=== PATIENT | male | born 1945 | race Hispanic/Latino ===

== ENCOUNTER 2019-01-13 10:53 | Outpatient (CLI) | payer BC ==
--- NOTE | 2019-01-13 13:51 | MRI ---
MRI LUMBAR SPINE NONCONTRAST: DATE: 01/13/19 HISTORY: 73-year-old male with M48.062 spinal stenosis of lumbar region with neurogenic claudication. COMPARISON: None. FINDINGS: There are five lumbar-type vertebrae. Vertebral body heights are maintained. No major bone marrow sig nal abnormality, other than Modic Type I end plate marrow changes at L5-S1, mostly on the right side. T12-L1: Tiny central disc herniation with mild minimal inferior migration. However, the disc space i s maintained, with normal signal. No central or neural foraminal stenosis. L1-2: Conus medullaris terminates at this level. Mild disc space narrowing. Disc desiccation. Slight degenerative retrolisthesis of L1 on L2. Mild diffuse disc bulge. Mild to moderate bilateral neural foraminal stenosis. No central stenosis. L2-3: Disc space maintained. Disc desiccation. Diffuse disc bulge. Mild right neural foraminal steno sis. Mild to moderate left neural foraminal stenosis. No central stenosis. L3-4: Normal disc height and disc signal. No central stenosis. Mild to moderate bilateral neural for aminal stenosis, left greater than right. No central stenosis. L4-5: Disc desiccation and mild disc bulge without loss of disc height. Bilateral moderate to severe facet DJD causes a slight Grade I anterolisthesis of L4 on L5. Moderately thickened ligamentum flavu m encroaches upon posterior aspect of the spinal canal. All of these factors together result in moder ate central spinal canal stenosis. Superimposed mildly prominent epidural fat pad, especially posteri ren, results in moderate to severe thecal sac stenosis. Mild to moderate bilateral neural foraminal stenosis. L5-S1: Moderate disc space narrowing. Right-sided Modic Type I end plate marrow edema as described a jessica. Bilateral moderate degenerative facet changes. Moderate to severe bilateral neural foraminal st enosis, right worse than left. In addition to a moderate size diffuse disc bulge, there is a superimp osed central and bilateral paracentral focal disc herniation with annular fissure which protrudes int o the anterior aspect of the spinal canal and abuts the bilateral S1 nerve roots. Overall mild centra l spinal canal stenosis. Lateral recess stenosis bilaterally. IMPRESSION: 1. Lumbar spondylosis with degenerative disc disease (mostly mild, but moderate at L5-S1); and facet osteoarthrosis (high grade at L4-5 and L5-S1). 2. Prominent central and bilateral paracentral disc herniation at L5-S1 abutting the bilateral S1 ne rve roots. 3. Moderate to severe bilateral neural foraminal stenosis at L5-S1. JN Zaida POS: TPC
== END 2019-01-13 10:54 | disposition home or self-care (01) ==
LOC: BICMRI 10:53
PROVIDERS: ATTEND Orthopaedic Surgery
DX: M48.062 Spinal stenosis, lumbar region with neurogenic claudication (principal); M47.816 Spondylosis without myelopathy or radiculopathy, lumbar region; M47.817 Spondylosis without myelopathy or radiculopathy, lumbosacral region; M51.37 Other intervertebral disc degeneration, lumbosacral region; M51.27 Other intervertebral disc displacement, lumbosacral region; M48.07 Spinal stenosis, lumbosacral region
CPT/HCPCS: 72148

== ENCOUNTER 2020-04-10 12:26 | Emergency (ER) | payer BC, MEDICARE, OTHER ==
[2020-04-11 11:03] LABS: SARS-CoV-2 MS2 Positive; SARS-CoV-2 N Gene Negative; SARS-CoV-2 S Gene Negative; SARS-CoV-2 orf1ab Negative
== END 2020-04-10 13:20 | disposition home or self-care (01) ==
LOC: ERS 12:26
DX: R05 Cough (principal); Z20.828 Contact with and (suspected) exposure to other viral communicable diseases; E11.9 Type 2 diabetes mellitus without complications; I10 Essential (primary) hypertension; Z79.4 Long term (current) use of insulin; Z79.899 Other long term (current) drug therapy; Z79.1 Long term (current) use of non-steroidal anti-inflammatories (NSAID)
CPT/HCPCS: 87635; 99283; U0003

== ENCOUNTER 2020-04-22 12:46 | Observation (INO) | payer MEDICARE, OTHER ==
[2020-04-22] MEDS ORDERED: Iopamidol-370 76% 500 ML 1 ML ONE (12:55)
--- NOTE | 2020-04-22 14:34 | RAD ---
EXAM: Chest PA and lateral: HISTORY: Positive COVID dictation, testing positive one week ago. Chest congestion. COMPARISON: 09/23/2008 FINDINGS: Heart: Normal cardiac silhouette Aorta: Atherosclerosis Pulmonary vessels: Normal Costophrenic angles: Costophrenic angles are clear. Lungs: Partial obscuration the right hemidiaphragm. Right lower lobe infiltrate cannot be excluded. Pneumothorax: No pneumothorax Osseous structures: No osseous abnormalities IMPRESSION: Right lower lobe infiltrate.
[2020-04-22 15:19] LABS: #Basophils 0.1 thou/uL (0.0-0.2); #Lymphocytes 1.9 thou/uL (1.20-3.40); #Monocytes 0.7 thou/uL (0.11-0.59); #Neutrophils 4.8 thou/uL (1.40-6.50); %Basophils 1.8 % (0.0-1.0); %Eosinophils 0.1 % (0.0-10.0); %Lymphocytes 24.8 % (21.0-51.0); %Monocytes 8.8 % (0.0-10.0); %Neutrophils 64.5 % (42.0-75.0); Mean Corpuscular HGB CONC 33.2 g/dL (32.0-36.0); Mean Corpuscular Hemoglobin 29.5 pg (27.0-31.0); Mean Corpuscular Volume 88.9 fL (78.0-98.0); Mean Platelet Volume 8.6 fL (7.4-10.4); Platelet Count 165 thou/uL (130-400); RBC Distribution Width 13.7 % (11.5-14.5); Red Blood Cell (RBC) Count 4.74 mill/uL (4.70-6.10); White Blood Cell (WBC) Count 7.5 thou/uL (4.8-10.8)
[2020-04-22 15:42] LABS: ALT (SGPT) 17 U/L (8-55); AST (SGOT) 28 U/L (5-34); Albumin 3.7 g/dL (3.4-4.8); Alkaline Phosphatase 57 U/L (40-110); Anion Gap 12 mmol/L (10-20); BUN (Urea Nitrogen) 23 mg/dL (8.4-25.7); Bilirubin, Total 0.6 mg/dL (0.2-1.2); CK (CPK) 362 U/L (30-200); Calc. Creatinine Clearance 0 mL/min (70-130); Calcium 8.4 mg/dL (7.8-10.44); Carbon Dioxide 27 mmol/L (23-31); Chloride 104 mmol/L (98-107); Estimated GFR-MDRD 53; Globulin 3.3 g/dL (2.4-3.5); Glucose 228 mg/dL (83-110); Lipase 11 U/L (8-78); Potassium 4.9 mmol/L (3.5-5.1); Sodium 138 mmol/L (136-145)
[2020-04-22 16:05] LABS: CKMB 6.3 ng/mL (0-6.6)
[2020-04-22] MEDS ORDERED: Aspirin Chewable 81 MG TAB ONE (16:12)
[2020-04-22] MEDS ORDERED: Enoxaparin Sodium 100 MG/ML SYRINGE ONE (17:15)
[2020-04-22] MEDS ORDERED: Cefepime 2 GM VIAL ONE (17:15)
[2020-04-22] MEDS ORDERED: Enoxaparin Sodium 40 MG/0.4 ML SYRINGE ONE (17:18)
[2020-04-22 18:29] LABS: Troponin I 0.036 ng/mL (< 0.028)
[2020-04-22] MEDS ORDERED: Acetaminophen 650 MG Suppository PR PRN (18:43)
[2020-04-22] MEDS ORDERED: Sodium Chloride 0.9% 1,000 ML IV SCH (18:45)
[2020-04-22] MEDS ORDERED: Dextrose 5% in Water 1,000 ML IV PRN (18:57)
[2020-04-22] MEDS ORDERED: Dextrose 50% Abboject 50 ML SYRINGE SLOW IVP PRN (18:57)
[2020-04-22] MEDS ORDERED: Azithromycin 500 MG VIAL ONE (19:03)
--- NOTE | 2020-04-22 19:03 | CT ---
CTA Angio Chest W WO Con 04/22/2020 4:23 PM Indication: Productive cough with history of positive Covid testing Technique: Multiple CTA images were obtained of the thorax with IV contrast. 3-D rendering: MIP haseeb nstructed images were created and reviewed. Comparison: No relevant prior studies available. Findings: Pulmonary arteries: Respiratory motion artifact slightly limits image detail the segmental pulmonary arterial branching of both lungs. No definite central pulmonary embolus is evident. Heart and Aorta: There is mild cardiomegaly. There are vascular consultation involving the coronary arteries and thoracic aorta. Mediastinum:Normal appearing. No enlarged lymph nodes. Lungs:There are patchy peripheral subpleural groundglass opacity seen within both lungs. No airspace consolidation is evident. Pleural space: Clear. Upper Abdomen: No acute abnormality. Osseous Structures: No acute osseous abnormality. There is scattered degenerative and osteoarthritic change present. Soft tissues:No abnormality. Other findings:None. Impression: 1. No definite central pulmonary embolus is evident within limitation exam. 2. Patchy peripheral subpleural groundglass opacities affecting both lungs consistent with a pattern seen with Covid -related pneumonia.
--- NOTE | 2020-04-22 19:44 | PDOC.HHP ---
Hospitalist HPI - History of Present Illness Cough History of Present Illness: Patient presents due to low oxygen noted at home of 90%. was concerned because she was told it should be higher than that. He and his have both been experiencing coughs and were initially tested for COVID on 04/10, and initially tested negative. Their symptoms persisted prompting them to go to the urgent care center last Wednesday. They were tested again and given results last Wednesday and found to be positive for COVID. Wednesday at which time they were tested for COVID for a second time due to their coughs. Initial test was negative however this past Wednesday they were told they tested positive. Patient has been on doxycycline, albuterol with minimal relief in symptoms. He complains of a persistent dry cough without any associated shortness of breath or chest pain. Denies any hemoptysis. Has not had any fever. Has been functioning as normal at home. Walks independently and denies any dyspnea on exertion. Has not had any lower leg swelling. No headaches or dizziness. Appetite has been normal. Denies any complaints. No history of underlying lung disease such as asthma or COPD. His only complaint at the moment is being hungry. ED Course: A chest xray was done showing a right lower lobe infiltrate. He was started on IV antibiotics for pneumonia. Labs showed a normal FBC. CK 362. BUN 23, Creat 1.32, GFR 53 (altered from baseline). Lactic acid 1.2. Indeterminate troponin of 0.031, therefore serial enzymes were ordered. He remained asymptomatic with regards to chest pain or sob. EKG done showed NSR , HR 71. No ST changes or T wave abnormalities present. D-dimer elevated 1.19 CTA ordered. (His is also awaiting CTA at this moment with plans to d/c home if results come back normal). Patient given Aspirin 324 mg due to indeterminate trop. Also given 1 mg/kg of Lovenox in ED. Started on Azithromycin and Cefepime. Hospitalist ROS - Review of Systems Constitutional: denies: fever, chills, sweats, weakness, malaise, other Eyes: denies: pain, vision change, conjunctivae inflammation, eyelid inflammation, redness, other ENT: denies: ear pain, ear discharge, nose pain, nose discharge, nose congestion , mouth pain, mouth swelling, throat pain, throat swelling, other Respiratory: reports: cough, dry. denies: shortness of breath, hemoptysis, SOB with excertion, pleuritic pain, sputum, wheezing, other Cardiovascular: denies: chest pain, palpitations, orthopnea, paroxysmal noc. dyspnea, edema, light headedness, other Gastrointestinal: denies: nausea, vomiting, abdominal pain, diarrhea, constipation, melena, hematochezia, other Genitourinary: denies: dysuria, frequency, incontinence, hematuria, retention, other Musculoskeletal: denies: neck pain, shoulder pain, arm pain, back pain, hand pain, leg pain, foot pain, other Skin: denies: rash, lesions, sandeep, bruising, other Neurological: denies: weakness, numbness, incoordination, change in speech, confusion, seizures, other Hospitalist History - Past Medical History Cardiac: reports: HTN Endocrine: reports: Diabetes - Past Surgical History Past Surgical History: reports: Cataract Removal, Other (Left ankle surgery) - Family History Family History: reports: no pertinent history - Social History Smoking Status: Never smoker Alcohol: reports: None Drugs: reports: none Living Situation: With Family Activity level: independent ambulation - Exam General Appearance: NAD, awake alert Eye: PERRL, anicteric sclera ENT: normocephalic atraumatic, no oropharyngeal lesions, moist mucosa Neck: supple, symmetric, no JVD, no thyromegaly, no lymphadenopathy Heart: RRR, no murmur, no gallops, no rubs, normal peripheral pulses Respiratory: CTAB, no wheezes, no rales, no ronchi, normal chest expansion, no tachypnea Gastrointestinal: soft, non-tender, non-distended, normal bowel sounds, no palpable masses Extremities: no edema Skin: normal turgor, no lesions, no rashes Neurological: cranial nerve grossly intact, normal sensation to touch, no weakness Musculoskeletal: normal tone, normal strength, no muscle wasting Psychiatric: normal affect, normal behavior, A&O x 3 Hospitalist Results - Labs Result Diagrams: 04/22/20 15:05 04/22/20 15:05 Lab results: WBC 7.5 thou/uL (4.8-10.8) 04/22/20 15:05 Hgb 14.0 g/dL (14.0-18.0) 04/22/20 15:05 Hct 42.1 % (42.0-52.0) 04/22/20 15:05 MCV 88.9 fL (78.0-98.0) 04/22/20 15:05 Plt Count 165 thou/uL (130-400) 04/22/20 15:05 Neutrophils % 64.5 % (42.0-75.0) 04/22/20 15:05 Sodium 138 mmol/L (136-145) 04/22/20 15:05 Potassium 4.9 mmol/L (3.5-5.1) 04/22/20 15:05 Chloride 104 mmol/L (98-107) 04/22/20 15:05 Carbon Dioxide 27 mmol/L (23-31) 04/22/20 15:05 BUN 23 mg/dL (8.4-25.7) 04/22/20 15:05 Creatinine 1.32 mg/dL (0.7-1.3) H 04/22/20 15:05 Glucose 228 mg/dL (83-110) H 04/22/20 15:05 Lactic Acid 1.2 mmol/L (0.5-2.2) 04/22/20 15:05 Calcium 8.4 mg/dL (7.8-10.44) 04/22/20 15:05 Total Bilirubin 0.6 mg/dL (0.2-1.2) 04/22/20 15:05 AST 28 U/L (5-34) 04/22/20 15:05 ALT 17 U/L (8-55) 04/22/20 15:05 Alkaline Phosphatase 57 U/L (40-110) 04/22/20 15:05 Creatine Kinase 362 U/L (30-200) H 04/22/20 15:05 CK-MB (CK-2) 6.3 ng/mL (0-6.6) 04/22/20 15:05 Troponin I 0.036 ng/mL (< 0.028) H 04/22/20 17:33 C-Reactive Protein 3.03 mg/dL (= or < 0.5) H 04/22/20 17:32 Serum Total Protein 7.0 g/dL (5.8-8.1) 04/22/20 15:05 Albumin 3.7 g/dL (3.4-4.8) 04/22/20 15:05 Lipase 11 U/L (8-78) 04/22/20 15:05 - Radiology Interpretation CT scan - chest Status: pending Hospitalist H&P A/P - Problem (1) Persistent dry cough Code(s): R05 - COUGH Status: Acute (2) COVID-19 virus detected Code(s): U07.1 - COVID-19 Status: Acute (3) Acute on chronic renal insufficiency Code(s): N28.9 - DISORDER OF KIDNEY AND URETER, UNSPECIFIED; N18.9 - CHRONIC KIDNEY DISEASE, UNSPECIFIED Status: Chronic (4) Hypertension Code(s): I10 - ESSENTIAL (PRIMARY) HYPERTENSION Status: Chronic (5) Diabetes mellitus Code(s): E11.9 - TYPE 2 DIABETES MELLITUS WITHOUT COMPLICATIONS Status: Chronic - Plan Plan: Continue IV antibiotics. Patient given Lovenox 1 mg/kg SC x 1 in ED. Awaiting CTA, will hold further anticoagulation if negative for PE. Monitor renal function. Gentle hydration given acute on chronic renal injury with contrast given for CTA. Continue to trend troponins. Cardiac monitoring ordered. Monitor BP and glucose. Resume home medications once verified. ISS initiated. CODE STATUS FULL Surrogate decision maker is his Laura Grayson. PCP: Dr. Henry Forde.
[2020-04-22] MEDS: Famotidine 20 MG TAB PO SCH (20:35)
[2020-04-22 21:34] LABS: CKMB 5.3 ng/mL (0-6.6)
[2020-04-22] MEDS ORDERED: ALBUTEROL SULFATE IH PRN (23:27)
[2020-04-22] MEDS ORDERED: Albuterol 200 PUFF (6.7GM INHALER) INH PRN (23:41)
[2020-04-22] MEDS: Benzonatate 100 MG CAP PO PRN (23:47)
[2020-04-23] MEDS: Acetaminophen 325 MG TAB PO PRN ×2 (04:46→20:34)
[2020-04-23 04:47] LABS: #Lymphocytes 2.3 thou/uL (1.20-3.40); #Monocytes 0.7 thou/uL (0.11-0.59); #Neutrophils 3.3 thou/uL (1.40-6.50); %Eosinophils 0.4 % (0.0-10.0); %Lymphocytes 36.3 % (21.0-51.0); %Neutrophils 52.3 % (42.0-75.0); Hemoglobin 12.9 g/dL (14.0-18.0); Mean Corpuscular HGB CONC 32.4 g/dL (32.0-36.0); Mean Corpuscular Hemoglobin 28.5 pg (27.0-31.0); Mean Corpuscular Volume 88.2 fL (78.0-98.0); Mean Platelet Volume 8.4 fL (7.4-10.4); Platelet Count 168 thou/uL (130-400); RBC Distribution Width 13.6 % (11.5-14.5); White Blood Cell (WBC) Count 6.2 thou/uL (4.8-10.8)
[2020-04-23 05:23] LABS: Anion Gap 10 mmol/L (10-20); BUN (Urea Nitrogen) 17 mg/dL (8.4-25.7); Calc. Creatinine Clearance 91 mL/min (70-130); Calcium 7.9 mg/dL (7.8-10.44); Carbon Dioxide 26 mmol/L (23-31); Chloride 106 mmol/L (98-107); Estimated GFR-MDRD 66; Glucose 178 mg/dL (83-110); Potassium 4.3 mmol/L (3.5-5.1); Sodium 138 mmol/L (136-145)
[2020-04-23] MEDS ORDERED: Cefepime 2 GM in Sodium Chloride 0.9% 100 ML IVPB SCH (06:00)
[2020-04-23] MEDS: Famotidine 20 MG TAB PO SCH ×2 (08:35→20:34)
[2020-04-23] MEDS: Lisinopril 2.5 MG TAB PO SCH (08:35)
[2020-04-23] MEDS: Aspirin 81 mg Enteric Coated Tablet PO SCH (08:36)
[2020-04-23] MEDS: HumuLIN 70/30 (300 UNITS/3 ML VIAL) SC SCH ×2 (08:36→18:22)
--- NOTE | 2020-04-23 18:40 | PDOC.HOSPP ---
- Subjective Encounter Date: 04/23/20 Encounter Time: 16:30 Subjective: pt's chart reviewed. called pt on the phone. he does have a significant cough. - Objective Vital Signs & Weight: Vital Signs (12 hours) Temp Pulse Resp BP BP Pulse Ox 04/23/20 13:01 98.3 F 68 20 148/73 H 92 L 04/23/20 08:40 97.2 F L 63 14 125/58 L 93 L Weight Admit Weight 243 lb Weight 243 lb I&O: 04/22/20 04/23/20 04/24/20 06:59 06:59 06:59 Intake Total 890 Output Total 400 100 Balance 490 -100 Result Diagrams: 04/23/20 04:23 04/23/20 04:23 Additional Labs: Accuchecks 04/23/20 04/22/20 17:00 20:16 POC Glucose 175 H 159 H Hospitalist ROS - Review of Systems Respiratory: reports: cough Cardiovascular: denies: chest pain, palpitations, orthopnea, paroxysmal noc. dyspnea, edema, light headedness, other Gastrointestinal: denies: nausea, vomiting, abdominal pain, diarrhea, constipation, melena, hematochezia, other Genitourinary: denies: dysuria, frequency, incontinence, hematuria, retention, other - Medication Medications: Active Medications Generic Name Dose Route Start Last Admin Trade Name Freq PRN Reason Stop Dose Admin Acetaminophen 650 mg 04/22/20 18:43 04/23/20 04:46 Tylenol PO 650 mg Q4H PRN Administration Headache/Fever/Mild Pain (1-3) Aspirin 81 mg 04/23/20 09:00 04/23/20 08:36 Ecotrin PO 81 mg DAILY CHUY Administration Benzonatate 100 mg 04/22/20 23:27 04/22/20 23:47 Tessalon PO 100 mg TID PRN Administration Cough Famotidine 20 mg 04/22/20 21:00 04/23/20 08:35 Pepcid PO 20 mg BID CHUY Administration Insulin Human Isoph/Insulin Regular 60 units 04/23/20 07:30 04/23/20 18:22 Humulin 70/30 SC 60 unit BID-AC CHUY Administration Lisinopril 2.5 mg 04/23/20 09:00 04/23/20 08:35 Zestril PO 2.5 mg DAILY CHUY Administration Hosp A/P (1) COVID-19 virus detected Code(s): U07.1 - COVID-19 Status: Acute (2) Persistent dry cough Code(s): R05 - COUGH Status: Acute (3) Diabetes mellitus Code(s): E11.9 - TYPE 2 DIABETES MELLITUS WITHOUT COMPLICATIONS Status: Chronic (4) Hypertension Code(s): I10 - ESSENTIAL (PRIMARY) HYPERTENSION Status: Chronic - Plan spoke with ID who saw the pt recommended to monitor the pt. will check labs in am. prn meds for cough. troponin improved.
[2020-04-23] MEDS ORDERED: Azithromycin 500 MG in Sodium Chloride 0.9% 250 ML 250 ML IVPB SCH (20:00)
--- NOTE | 2020-04-23 20:30 | CON ---
DATE OF CONSULTATION: 04/23/2020 REASON FOR CONSULTATION: COVID pneumonia. HISTORY OF PRESENT ILLNESS: A 74-year-old who has history of type 2 diabetes, both him and his developed respiratory symptoms for the past 2 weeks. Apparently, he had been tested negative for COVID on April 10 with his and then he tested again a few days and after was positive, so he is here now on treatment. He could not really be interviewed, because he did not stop coughing during the whole time I was there. He has intermittent headaches. No dyspnea. No abdominal pain or diarrhea. No genitourinary symptoms. No skin disorder or joint symptoms. PAST MEDICAL HISTORY: Diabetes, cataract surgery, ankle surgery. ALLERGIES: NONE. SOCIAL HISTORY: Retired. Lives with and son. Son works as a [employer] truck driver. No smoking history. No alcoholic beverage use. CURRENT MEDICATIONS: P.r.n. medications: 1. Aricept. 2. Glucagon. 3. Insulin. PHYSICAL EXAMINATION: VITAL SIGNS: T-max 100.7, BP 140/70, pulse 68, respirations 14-20, O2 saturation 92% to 94%. SKIN: Not remarkable. The patient has a peripheral IV access. He is voiding in the toilet. LYMPH: No lymphadenopathy. HEENT: Ocular movements conjugate. Oral cavity normal. NECK: Supple. LUNGS: With scattered inspiratory crackles, right and left hemithorax. No wheezing. HEART: S1, S2. Regular rate. No S3 or S4. ABDOMEN: Soft, not distended or tender. No ascites. No bladder distention. No joint inflammatory activity. NEUROLOGIC: Examination nonfocal. LABORATORY DATA: White cell count 7.5 and 6.2. Differential with lymphocyte count of 2.3. D-dimer 1.19 and ferritin 498. CRP was 3.03. Creatinine normal. IMAGING: A chest CT was completed and it showed patchy ground-glass opacities typical of COVID, O2 saturations are 92% to 93% on room air. ASSESSMENT: 1. Type 2 diabetes. 2. COVID pneumonia, [id number]. 3. He has been ill now for more than 2 weeks, so he is not a candidate for remdesivir. We will go ahead and start him on Decadron daily dose, supportive therapy. Job ID: [id number]
[2020-04-23] MEDS: Atorvastatin Calcium 20 MG TAB PO SCH (20:35)
[2020-04-23] MEDS: Donepezil HCl 10 MG TAB PO SCH (20:35)
[2020-04-23] MEDS: Benzonatate 100 MG CAP PO PRN (20:35)
[2020-04-24] MEDS: Acetaminophen 325 MG TAB PO PRN (04:12)
[2020-04-24] MEDS: Aspirin 81 mg Enteric Coated Tablet PO SCH (07:55)
[2020-04-24] MEDS: Lisinopril 2.5 MG TAB PO SCH (07:55)
[2020-04-24] MEDS: Dexamethasone 4 MG TAB PO SCH (07:55)
[2020-04-24] MEDS: Famotidine 20 MG TAB PO SCH ×2 (13:26→20:01)
[2020-04-24] MEDS: HumuLIN 70/30 (300 UNITS/3 ML VIAL) SC SCH ×2 (13:26→17:44)
--- NOTE | 2020-04-24 14:00 | PRG ---
DATE OF SERVICE: 04/24/2020 SUBJECTIVE: Mr. Grayson is still coughing fairly frequently. Little bit of dyspnea. No chest pain. No abdominal pain. Little bit of diarrhea. OBJECTIVE: VITAL SIGNS: His temperature curve has improved probably with the Decadron. His BP is 140/69, pulse 72, respirations 16, O2 saturations LUNGS: Again with faint basilar crackles. HEART: S1 and S2, regular rate. No wheezing. ABDOMEN: Soft, not distended. Moves all extremities equally. LABORATORY DATA: White cell count has not been repeated. D-dimer is down to 1.1. The ferritin is up to 441 and the C-reactive protein is up to 3.37. ASSESSMENT AND DISCUSSION: Type 2 diabetes; COVID pneumonia, moderate to severe. The patient is right at the threshold, where those moderate to severe patients may deteriorate and end up requiring higher levels of oxygen supplementation and even intubation. I would advise to keep him in the hospital to avoid readmission and having to be intubated and hopefully in the next few days with Decadron, he will improve further and then allow disposition in a more secure fashion. Job ID: [id number] MTDD
--- NOTE | 2020-04-24 16:30 | PDOC.HOSPP ---
- Subjective Encounter Date: 04/24/20 Encounter Time: 16:30 Subjective: called pt in the room and also saw him later on. when pt called he states that he feels well and no cough. however when i went into the room pt states that he does not feel well. - Objective Vital Signs & Weight: Vital Signs (12 hours) Temp Pulse Resp BP Pulse Ox 04/24/20 12:30 98.6 F 72 16 148/69 H 92 L 04/24/20 07:55 98.8 F 80 19 138/71 94 L Weight Admit Weight 243 lb Weight 243 lb I&O: 04/23/20 04/24/20 04/25/20 06:59 06:59 06:59 Intake Total 890 300 Output Total 400 300 Balance 490 0 Result Diagrams: 04/26/20 04:36 04/26/20 04:36 Additional Labs: Accuchecks 04/24/20 04/24/20 04/24/20 15:24 10:04 06:36 POC Glucose 313 H 108 70 04/23/20 04/23/20 19:51 17:00 POC Glucose 130 H 175 H Hospitalist ROS - Review of Systems Respiratory: denies: cough, dry, shortness of breath, hemoptysis, SOB with excertion, pleuritic pain, sputum, wheezing, other Cardiovascular: denies: chest pain, palpitations, orthopnea, paroxysmal noc. dyspnea, edema, light headedness, other Gastrointestinal: denies: nausea, vomiting, abdominal pain, diarrhea, constipation, melena, hematochezia, other - Medication Medications: Active Medications Generic Name Dose Route Start Last Admin Trade Name Derikq PRN Reason Stop Dose Admin Acetaminophen 650 mg 04/22/20 18:43 04/23/20 20:34 Tylenol PO 650 mg Q4H PRN Administration Headache/Fever/Mild Pain (1-3) Aspirin 81 mg 04/23/20 09:00 04/24/20 07:55 Ecotrin PO 81 mg DAILY CHUY Administration Atorvastatin Calcium 20 mg 04/23/20 21:00 04/23/20 20:35 Lipitor PO 20 mg HS CHUY Administration Benzonatate 100 mg 04/22/20 23:27 04/23/20 20:35 Tessalon PO 100 mg TID PRN Administration Cough Dexamethasone 6 mg 04/24/20 08:00 04/24/20 07:55 Decadron PO 6 mg QAM-WM CHUY Administration Donepezil HCl 10 mg 04/23/20 21:00 04/23/20 20:35 Aricept PO 10 mg HS CHUY Administration Famotidine 20 mg 04/22/20 21:00 04/24/20 13:26 Pepcid PO Not Given BID CHUY Insulin Human Isoph/Insulin Regular 60 units 04/23/20 07:30 04/24/20 13:26 Humulin 70/30 SC Not Given BID-AC CHUY Lisinopril 2.5 mg 04/23/20 09:00 04/24/20 07:55 Zestril PO 2.5 mg DAILY CHUY Administration - Exam Neck: negative: supple, symmetric, no JVD, no thyromegaly, no lymphadenopathy, no carotid bruit, JVD Heart: negative: RRR, no murmur, no gallops, no rubs, normal peripheral pulses, irregular, diminshed peripheral pulses, murmur present, II/IV, III/IV Respiratory: negative: CTAB, no wheezes, no rales, no ronchi, normal chest expansion, no tachypnea, normal percussion, rales, rhonchi, tachypneic, wheezes Gastrointestinal: negative: soft, non-tender, non-distended, normal bowel sounds , no palpable masses, no hepatomegaly, no splenomegaly, no bruit, no guarding, no rigidity, tender to palpation, distended, diminished bowl sounds, voluntary guarding Hosp A/P (1) COVID-19 virus detected Code(s): U07.1 - COVID-19 Status: Acute (2) Persistent dry cough Code(s): R05 - COUGH Status: Acute (3) Diabetes mellitus Code(s): E11.9 - TYPE 2 DIABETES MELLITUS WITHOUT COMPLICATIONS Status: Chronic (4) Hypertension Code(s): I10 - ESSENTIAL (PRIMARY) HYPERTENSION Status: Chronic - Plan spoke with ID who saw the pt recommended to monitor the pt. will check labs in am. prn meds for cough. troponin improved. 04/24 pt doing well, occasional cough. He is eating well. He is at a high risk for readmission. will monitor.
[2020-04-24] MEDS: Atorvastatin Calcium 20 MG TAB PO SCH (20:00)
[2020-04-24] MEDS: Donepezil HCl 10 MG TAB PO SCH (20:00)
[2020-04-24] MEDS: HumaLOG 300 UNITS/3 ML VIAL SC PRN (20:29)
[2020-04-25] MEDS: Senokot S 8.6-50 MG TAB PO PRN (09:30)
[2020-04-25] MEDS: Lisinopril 2.5 MG TAB PO SCH (09:30)
[2020-04-25] MEDS: Benzonatate 100 MG CAP PO PRN (09:30)
[2020-04-25] MEDS: Famotidine 20 MG TAB PO SCH ×2 (09:30→19:47)
[2020-04-25] MEDS: Aspirin 81 mg Enteric Coated Tablet PO SCH (09:31)
[2020-04-25] MEDS: Dexamethasone 4 MG TAB PO SCH (09:31)
[2020-04-25] MEDS: HumuLIN 70/30 (300 UNITS/3 ML VIAL) SC SCH ×2 (09:33→19:27)
[2020-04-25 11:28] VITALS: BMI 38.0
[2020-04-25] MEDS: Guaifenesin DM 100-10/5 ML UDCUP PO PRN ×2 (14:13→20:02)
[2020-04-25] MEDS: HumaLOG 300 UNITS/3 ML VIAL SC PRN ×3 (14:13→23:19)
[2020-04-25] MEDS: Atorvastatin Calcium 20 MG TAB PO SCH (19:47)
[2020-04-25] MEDS: Donepezil HCl 10 MG TAB PO SCH (19:47)
[2020-04-26 04:55] LABS: #Lymphocytes 1.7 thou/uL (1.20-3.40); #Monocytes 0.6 thou/uL (0.11-0.59); #Neutrophils 10.6 thou/uL (1.40-6.50); %Basophils 0.2 % (0.0-1.0); %Eosinophils 0.1 % (0.0-10.0); %Lymphocytes 13.4 % (21.0-51.0); %Monocytes 4.8 % (0.0-10.0); %Neutrophils 81.5 % (42.0-75.0); Mean Corpuscular HGB CONC 33.5 g/dL (32.0-36.0); Mean Corpuscular Hemoglobin 29.3 pg (27.0-31.0); Mean Corpuscular Volume 87.6 fL (78.0-98.0); Mean Platelet Volume 8.4 fL (7.4-10.4); Platelet Count 242 thou/uL (130-400); RBC Distribution Width 13.5 % (11.5-14.5); Red Blood Cell (RBC) Count 4.76 mill/uL (4.70-6.10)
[2020-04-26 05:09] LABS: ALT (SGPT) 21 U/L (8-55); AST (SGOT) 34 U/L (5-34); Albumin 3.1 g/dL (3.4-4.8); Alkaline Phosphatase 50 U/L (40-110); Anion Gap 14 mmol/L (10-20); BUN (Urea Nitrogen) 18 mg/dL (8.4-25.7); Bilirubin, Total 0.4 mg/dL (0.2-1.2); CRP (Inflammatory) 1.62 mg/dL (= or < 0.5); Calc. Creatinine Clearance 99 mL/min (70-130); Calcium 8.3 mg/dL (7.8-10.44); Carbon Dioxide 19 mmol/L (23-31); Chloride 108 mmol/L (98-107); Estimated GFR-MDRD 76; Globulin 3.4 g/dL (2.4-3.5); Glucose 202 mg/dL (83-110); Potassium 4.6 mmol/L (3.5-5.1); Protein, Total 6.5 g/dL (5.8-8.1); Sodium 136 mmol/L (136-145)
--- NOTE | 2020-04-26 05:58 | PDOC.HOSPP ---
- Subjective Encounter Date: 04/25/20 Encounter Time: 16:45 Subjective: pt up in bed complains of cough - Objective Vital Signs & Weight: Vital Signs (12 hours) Temp Pulse Resp BP Pulse Ox 04/25/20 19:58 97.8 F 65 14 137/68 94 L Weight Admit Weight 243 lb Weight 235 lb 14.4 oz I&O: 04/24/20 04/25/20 04/26/20 06:59 06:59 06:59 Intake Total 300 240 977 Output Total 383 637 6178 Balance 0 90 -198 Result Diagrams: 04/26/20 04:36 04/26/20 04:36 Additional Labs: Accuchecks 04/25/20 04/25/20 04/25/20 23:21 16:55 12:29 POC Glucose 283 H 280 H 240 H Hospitalist ROS - Review of Systems Respiratory: reports: cough Cardiovascular: denies: chest pain, palpitations, orthopnea, paroxysmal noc. dyspnea, edema, light headedness, other Gastrointestinal: denies: nausea, vomiting, abdominal pain, diarrhea, constipation, melena, hematochezia, other - Medication Medications: Active Medications Generic Name Dose Route Start Last Admin Trade Name Freq PRN Reason Stop Dose Admin Acetaminophen 650 mg 04/22/20 18:43 04/23/20 20:34 Tylenol PO 650 mg Q4H PRN Administration Headache/Fever/Mild Pain (1-3) Aspirin 81 mg 04/23/20 09:00 04/25/20 09:31 Ecotrin PO 81 mg DAILY CHUY Administration Atorvastatin Calcium 20 mg 04/23/20 21:00 04/25/20 19:47 Lipitor PO 20 mg HS CHUY Administration Benzonatate 100 mg 04/22/20 23:27 04/25/20 09:30 Tessalon PO 100 mg TID PRN Administration Cough Dexamethasone 6 mg 04/24/20 08:00 04/25/20 09:31 Decadron PO 6 mg QAM-WM CHUY Administration Donepezil HCl 10 mg 04/23/20 21:00 04/25/20 19:47 Aricept PO 10 mg HS CHUY Administration Famotidine 20 mg 04/22/20 21:00 04/25/20 19:47 Pepcid PO 20 mg BID CHUY Administration Guaifenesin/Dextromethorphan 15 ml 04/22/20 18:43 06/18/20 20:02 Robitussin Dm PO 15 ml Q4H PRN Administration Cough Insulin Human Lispro 0 units 04/22/20 18:57 04/25/20 18:35 Humalog SC 4 unit .MILD SLIDING SCALE PRN Administration Mild Correctional Scale Insulin Human Lispro 0 units 04/22/20 18:57 04/25/20 23:19 Humalog SC 3 unit .BEDTIME SLIDING SC PRN Administration Bedtime Correctional Scale Lisinopril 2.5 mg 04/23/20 09:00 04/25/20 09:30 Zestril PO 2.5 mg DAILY CHUY Administration Senna/Docusate Sodium 2 tab 04/22/20 18:43 04/25/20 09:30 Senokot S PO 2 tab BID PRN Administration Constipation Sodium Chloride 10 ml 04/22/20 18:43 04/24/20 20:00 Flush - Normal Saline IVF 10 ml Q12HR PRN Administration Saline Flush - Exam Heart: negative: RRR, no murmur, no gallops, no rubs, normal peripheral pulses, irregular, diminshed peripheral pulses, murmur present, II/IV, III/IV Respiratory: negative: CTAB, no wheezes, no rales, no ronchi, normal chest expansion, no tachypnea, normal percussion, rales, rhonchi, tachypneic, wheezes Gastrointestinal: negative: soft, non-tender, non-distended, normal bowel sounds , no palpable masses, no hepatomegaly, no splenomegaly, no bruit, no guarding, no rigidity, tender to palpation, distended, diminished bowl sounds, voluntary guarding Extremities: negative: no cyanosis, no clubbing, no edema, 1+ LE edema, 2+ LE edema, clubbing Hosp A/P (1) COVID-19 virus detected Code(s): U07.1 - COVID-19 Status: Acute (2) Persistent dry cough Code(s): R05 - COUGH Status: Acute (3) Diabetes mellitus Code(s): E11.9 - TYPE 2 DIABETES MELLITUS WITHOUT COMPLICATIONS Status: Chronic (4) Hypertension Code(s): I10 - ESSENTIAL (PRIMARY) HYPERTENSION Status: Chronic - Plan spoke with ID who saw the pt recommended to monitor the pt. will check labs in am. prn meds for cough. troponin improved. 04/24 pt doing well, occasional cough. He is eating well. He is at a high risk for readmission. will monitor. 04/25 pt having some cough. He does not feel comfortable going home. will watch him one more day and disshcharge if ok with ID. will check inflammatory markers. Did explain to the pt that he will have a cough and it will take some time for the cough to improve. He is not hypoxic.
[2020-04-26] MEDS: HumuLIN 70/30 (300 UNITS/3 ML VIAL) SC SCH ×2 (08:41→18:21)
[2020-04-26] MEDS: Aspirin 81 mg Enteric Coated Tablet PO SCH (08:50)
[2020-04-26] MEDS: Dexamethasone 4 MG TAB PO SCH (08:50)
[2020-04-26] MEDS: Senokot S 8.6-50 MG TAB PO PRN (08:51)
[2020-04-26] MEDS: Famotidine 20 MG TAB PO SCH (08:51)
[2020-04-26] MEDS: Lisinopril 2.5 MG TAB PO SCH (08:51)
[2020-04-26] MEDS ORDERED: Polyethylene Glycol 3350 17 GM Packet PO SCH (09:00)
[2020-04-26] MEDS ORDERED: Enoxaparin Sodium 40 MG/0.4 ML SYRINGE SC SCH (09:00)
[2020-04-26] MEDS ORDERED: Bisacodyl 5 MG TAB PO SCH (09:15)
[2020-04-26 10:00] VITALS: TEMP 98.6
[2020-04-26 11:19] VITALS: BP 151/71
[2020-04-26] MEDS ORDERED: Bisacodyl 10 MG SUPP PR SCH (17:15)
--- NOTE | 2020-04-27 00:48 | DIS ---
DATE OF ADMISSION: 04/22/2020 DATE OF DISCHARGE: 04/26/2020 DISCHARGE DIAGNOSES: As of the followin. COVID viral pneumonia. 2. Dry cough. 3. Hypertension. 4. Diabetes. 5. Chronic kidney disease, stage 3. HOSPITAL COURSE: The patient is a 74-year-old male, who initially presented to the hospital for cough. He was noted to have oxygen saturations of 90% at home. He was seen by Infectious Disease and was started on Decadron. The patient never became hypoxic through the whole hospital stay. He was started on some fluids and his creatinine improved. The patient's CRP initially was 3. On the day of discharge, it was 1.62. The patient's creatinine improved to 0.96 from 1.32. The patient has been eating, drinking, and has been 93% to 92% on room air. The patient will be discharged home. I spoke with Infectious Disease, stated that the patient should be okay to be discharged home. I did tell the patient that he will have a cough since this is a viral infection and will take some time for his cough to improve. The patient will be discharged home on aspirin 81 mg daily, Decadron 6 mg for a total of 10 days, Pepcid 20 mg daily just while he is on Decadron, insulin 60 units twice a day, lisinopril 2.5 daily, atorvastatin 20 mg at bedtime, Aricept 10 mg at bedtime, Tessalon Perles 100 mg t.i.d. p.r.n., and albuterol 2 puffs q.4 hours p.r.n. PHYSICAL EXAMINATION: VITAL SIGNS: On discharge, temperature of 98.6, 71, 20, 93% on room air, 150/71. GENERAL: He is awake, alert, and oriented x3. Does not appear in distress. CV: S1, S2 present. No murmurs, rubs, or gallops. ABDOMEN: Soft, nontender. Bowel sounds are present x2. He will be discharged home. He will follow up with his primary as needed. Job ID: [id number]
--- NOTE | 2020-04-27 14:50 | EKG ---
Test Reason : Blood Pressure : / mmHG Vent. Rate : 071 BPM Atrial Rate : 071 BPM P-R Int : 194 ms QRS Dur : 080 ms QT Int : 382 ms P-R-T Axes : 038 009 034 degrees QTc Int : 415 ms Normal sinus rhythm Normal ECG Confirmed by GARRET WRIGHT, STEPH ([id number]), state editor ROBERT BURT ([id number]) on 04/27/2020 2:50:18 PM Referred By: Confirmed By:STEPH COMBS MD
== END 2020-04-26 18:29 | disposition home health service (06) ==
LOC: ERS 12:46 → 2SW 17:15 → INTOOBSV 17:15
PROVIDERS: ADMIT Internal Medicine; ATTEND Internal Medicine
DX: U07.1 COVID-19 (principal); J12.89 Other viral pneumonia; I12.9 Hypertensive chronic kidney disease with stage 1 through stage 4 chronic kidney disease, or unspecified chronic kidney disease; E11.22 Type 2 diabetes mellitus with diabetic chronic kidney disease; N18.3 Chronic kidney disease, stage 3 (moderate); Z79.4 Long term (current) use of insulin; Z79.899 Other long term (current) drug therapy
CPT/HCPCS: 36415; 36416; 71046; 71275; 80048; 80053; 82550; 82553; 82728; 83605; 83690; 83880; 84484; 85025; 85379; 86140; 87040; 93005; 96361; 96365; 96372; 96375; G0378; J0456; J0692; J1650; J1815; J3490; J8540; Q9967

== ENCOUNTER 2020-09-07 14:04 | Outpatient (CLI) | payer BC, MEDICARE ==
--- NOTE | 2020-09-07 16:26 | SJPRAD ---
TWO VIEWS CHEST: 09/07/20 PROVIDED CLINICAL HISTORY: Cough. FINDINGS: Comparison 04/16/20. Cardiac and mediastinal silhouette is unchanged in appearance. Chronic appear interstitial opacities are similar. No focal consolidation, pleural fluid or pneumothorax apparent. IMPRESSION: No evidence for an acute cardiopulmonary process. POS: PRIMITIVO
== END 2020-09-07 14:05 | disposition home or self-care (01) ==
LOC: SCSRAD 14:04
PROVIDERS: ATTEND Nurse Practitioner Family
DX: R05 Cough (principal)
CPT/HCPCS: 87635; U0003

== ENCOUNTER 2020-11-10 12:54 | Observation (INO) | payer BC, MEDICARE ==
[~2020-11-10 12:54] MED LIST: Iopamidol-370 76% 500 ML 1 ML ONE
[2020-11-10 13:29] LABS: #Eosinphils 0.1 thou/uL (0.0-0.7); #Lymphocytes 1.8 thou/uL (1.20-3.40); #Monocytes 0.7 thou/uL (0.11-0.59); #Neutrophils 5.2 thou/uL (1.40-6.50); %Basophils 0.2 % (0.0-1.0); %Eosinophils 1.3 % (0.0-10.0); %Lymphocytes 23.2 % (21.0-51.0); %Monocytes 8.5 % (0.0-10.0); %Neutrophils 66.7 % (42.0-75.0); Hemoglobin 12.7 g/dL (14.0-18.0); Mean Corpuscular HGB CONC 32.8 g/dL (32.0-36.0); Mean Corpuscular Hemoglobin 29.6 pg (27.0-31.0); Mean Corpuscular Volume 90.3 fL (78.0-98.0); Mean Platelet Volume 7.5 fL (7.4-10.4); Platelet Count 199 thou/uL (130-400); RBC Distribution Width 13.1 % (11.5-14.5); Red Blood Cell (RBC) Count 4.27 mill/uL (4.70-6.10); White Blood Cell (WBC) Count 7.7 thou/uL (4.8-10.8)
[2020-11-10 13:50] LABS: ALT (SGPT) 15 U/L (8-55); AST (SGOT) 21 U/L (5-34); Albumin 3.5 g/dL (3.4-4.8); Alkaline Phosphatase 49 U/L (40-110); Anion Gap 14 mmol/L (10-20); BUN (Urea Nitrogen) 22 mg/dL (8.4-25.7); Bilirubin, Total 0.4 mg/dL (0.2-1.2); Calc. Creatinine Clearance 0 mL/min (70-130); Calcium 8.5 mg/dL (7.8-10.44); Carbon Dioxide 25 mmol/L (23-31); Chloride 107 mmol/L (98-107); Glucose 145 mg/dL (83-110); Lipase 6 U/L (8-78); Magnesium 1.9 mg/dL (1.6-2.6); Potassium 4.9 mmol/L (3.5-5.1); Protein, Total 6.5 g/dL (5.8-8.1); Sodium 141 mmol/L (136-145)
[2020-11-10 14:26] LABS: Bilirubin Negative (Negative); Blood, Urine Negative (Negative); Clarity Clear (Clear); Glucose, Urine (Dipstick) 70 mg/dL (Negative); Ketone, Urine Negative (Negative); Leukocyte Negative Leu/uL (Negative); Nitrite Negative (Negative); Protein, Urine (Dipstick) 20 mg/dL (Neg-Trace); Specific Gravity, Urine 1.021 (1.002-1.036); Urobilinogen Normal mg/dL (Less than 2); pH, Urine 5.5 (5.0-9.0)
--- NOTE | 2020-11-10 14:26 | RAD ---
EXAM: Chest one view: HISTORY: Weakness dizziness gait problems prior Covid positive COMPARISON: 09/07/2020 FINDINGS: Heart size: Borderline size heart Lungs: Minimal increased markings in the right base and left midlung zone without significant change from prior study. No evidence for confluent lobar pneumonia, significant pleural effusion, acute edema, or pneumothorax , or other significant acute process. IMPRESSION: Minimal increased markings in the left midlung zone and right base showing little change from prior s tudy. No significant new process.
--- NOTE | 2020-11-10 15:07 | CT ---
CT head noncontrast HISTORY: Altered mental status. FINDINGS: There is no evidence of acute intracranial hemorrhage or infarct. Chronic ischemic small ve ssel disease is evident throughout the periventricular white matter of each cerebral hemisphere. Old lacunar infarct high at the right periventricular white matter. There is no mass effect or shift of midline structures. Mild diffuse cortical atrophy. IMPRESSION : No acute intracranial abnormalities are demonstrated.
--- NOTE | 2020-11-10 15:13 | CT ---
CT arteriogram neck with IV contrast and 3-D imaging HISTORY: TIA. Vascular disease. Weakness. FINDINGS: There is good contrast opacification of the aortic arch with bovine origin of the great ves sels. Good flow into each vertebral and carotid system. Mild calcification at each carotid bifurcation without significant stenosis. Calcification is most pr onounced at each carotid siphon intracranially, without obstruction. There are degenerative changes throughout the cervical spine. IMPRESSION : No acute vascular abnormalities are demonstrated. Atherosclerosis.
--- NOTE | 2020-11-10 16:36 | PDOC.HHP ---
Hospitalist HPI - History of Present Illness I passed out History of Present Illness: Mr. Grayson is a 75-year-old gentleman with a history of diabetes and hypertension. He was in his usual state of health until this afternoon. He says he woke up and gave himself his usual amount of insulin. He says that he knows he needed to go ahead and eat something. His blood sugar at that time was around 90. He has then later on that afternoon went out to eat. And shortly after eating about an hour, he became unresponsive where he looked like he was sleeping and he could not be aroused. His tried to talk to him loudly to get him to wake up plus they tried shaking him. After a few minutes and he did not seem to respond they called EMS. They checked his blood sugar but he is they are not sure what the value was. RN he was brought to the hospital where a CT scan of the brain was done. This was negative for stroke. A CT angiogram was also done which did not show any significant hemodynamic stenosis. EKG was done by the EMS service and was normal. He is being placed in observation due to concerns for the length of time that the patient was more or less obtunded. He denies having any chest pain he denies any chest pressure. He denies feeling any palpitations. He denies any shortness of breath. He had COVID-19 pneumonia back in April of last year but has not had any symptoms a ttributable to Covid currently. He says he has had episodes where he felt a bit dizzy or slightly out of it but it would only last a few seconds and was only present every 2 months or so. Hospitalist ROS - Review of Systems All other systems reviewed; all pertinent +/- noted in HPI/Subj (All systems were reveiwed and are negative except that mentioned in the HPI) Hospitalist History - Past Medical History Cardiac: reports: HTN Endocrine: reports: Diabetes - Past Surgical History Past Surgical History: reports: Cataract Removal, Other (Left ankle surgery) - Family History Family History: reports: diabetes mellitus - Social History Alcohol: reports: None Drugs: reports: none - Exam General Appearance: NAD, awake alert Eye: PERRL, anicteric sclera Heart: RRR, no murmur, no gallops, no rubs, normal peripheral pulses Respiratory: CTAB, no wheezes, no rales, no ronchi, normal chest expansion, no tachypnea Gastrointestinal: soft, non-tender, non-distended, normal bowel sounds, no palpable masses, no hepatomegaly Extremities: no cyanosis, no edema Skin: normal turgor, no rashes Neurological: cranial nerve grossly intact, normal sensation to touch, no focal deficits Psychiatric: normal affect, A&O x 3 Hospitalist Results - Labs Result Diagrams: 11/10/20 13:18 11/10/20 13:18 Lab results: WBC 7.7 thou/uL (4.8-10.8) 11/10/20 13:18 Hgb 12.7 g/dL (14.0-18.0) L 11/10/20 13:18 Hct 38.6 % (42.0-52.0) L 11/10/20 13:18 MCV 90.3 fL (78.0-98.0) 11/10/20 13:18 Plt Count 199 thou/uL (130-400) 11/10/20 13:18 Neutrophils % 66.7 % (42.0-75.0) 11/10/20 13:18 Sodium 141 mmol/L (136-145) 11/10/20 13:18 Potassium 4.9 mmol/L (3.5-5.1) 11/10/20 13:18 Chloride 107 mmol/L (98-107) 11/10/20 13:18 Carbon Dioxide 25 mmol/L (23-31) 11/10/20 13:18 BUN 22 mg/dL (8.4-25.7) 11/10/20 13:18 Creatinine 1.25 mg/dL (0.7-1.3) 11/10/20 13:18 Glucose 145 mg/dL (83-110) H 11/10/20 13:18 Calcium 8.5 mg/dL (7.8-10.44) 11/10/20 13:18 Total Bilirubin 0.4 mg/dL (0.2-1.2) 11/10/20 13:18 AST 21 U/L (5-34) 11/10/20 13:18 ALT 15 U/L (8-55) 11/10/20 13:18 Alkaline Phosphatase 49 U/L (40-110) 11/10/20 13:18 Troponin I 0.014 ng/mL (< 0.028) 11/10/20 13:18 B-Natriuretic Peptide 48.4 pg/mL (0-100) 11/10/20 13:18 Serum Total Protein 6.5 g/dL (5.8-8.1) 11/10/20 13:18 Albumin 3.5 g/dL (3.4-4.8) 11/10/20 13:18 Lipase 6 U/L (8-78) L 11/10/20 13:18 Urine Ketones Negative mg/dL (Negative) 11/10/20 14:06 Urine Blood Negative (Negative) 11/10/20 14:06 Urine Nitrite Negative (Negative) 11/10/20 14:06 Ur Leukocyte Esterase Negative Gracie/uL (Negative) 11/10/20 14:06 Hospitalist H&P A/P - Problem (1) Syncope Code(s): R55 - SYNCOPE AND COLLAPSE Status: Acute (2) Chronic kidney disease, stage 3 Code(s): N18.30 - CHRONIC KIDNEY DISEASE, STAGE 3 UNSPECIFIED Status: Chronic (3) Diabetes mellitus Code(s): E11.9 - TYPE 2 DIABETES MELLITUS WITHOUT COMPLICATIONS Status: Chronic (4) Hypertension Code(s): I10 - ESSENTIAL (PRIMARY) HYPERTENSION Status: Chronic - Plan Plan: * Syncope- ? etiology. this may be due to hypoglycemia, but a blood glucose was not obtained at the time of the incident. He has multiple risk factors for CAD and has not had a recent stress test. His also says he has a high fat diet. Will place him in Observation, monitor him on telemetry, and obtain an Echocardiogram and stress test. He may also benefit from out patient Event monitor or Holter Monitor * HTN- will need to reconcile and re-start home medications * DM- continue his usual dose of insulin and monitor the trend, also cover with a SSI * Chronic kidney disease stage 3- stable
--- NOTE | 2020-11-10 16:51 | ULT ---
Venous duplex sonogram right lower extremity HISTORY: Right leg pain and edema. FINDINGS: The right common femoral vein and greater saphenous junction were evaluated along with the femoral, deep femoral, tibial, and posterior tibial veins. There is good color Doppler flow, compression, and augmentation. IMPRESSION : Normal exam.
[2020-11-10 17:14] LABS: Troponin I 0.012 ng/mL (< 0.028)
[2020-11-10 19:37] LABS: Troponin I 0.013 ng/mL (< 0.028)
[2020-11-10] MEDS ORDERED: Ondansetron ODT 4 MG TAB PO PRN (22:38)
[2020-11-10] MEDS ORDERED: HumaLOG 300 UNITS/3 ML VIAL SC PRN (22:38)
[2020-11-10] MEDS ORDERED: Dextrose 5% in Water 1,000 ML IV PRN (22:38)
[2020-11-10] MEDS ORDERED: Acetaminophen 325 MG TAB PO PRN (22:38)
[2020-11-10] MEDS ORDERED: Dextrose 50% Abboject 50 ML SYRINGE SLOW IVP PRN (22:38)
[2020-11-10 23:36] VITALS: BMI 39.9
[2020-11-10] MEDS ORDERED: Famotidine 20 MG TAB PO SCH (23:45)
[2020-11-11 02:08] LABS: SARS-CoV-2 MS2 Positive; SARS-CoV-2 N Gene Negative; SARS-CoV-2 S Gene Negative; SARS-CoV-2 by NAA Not Detected (NotDetected); SARS-CoV-2 orf1ab Negative
[2020-11-11 04:40] LABS: #Basophils 0.1 thou/uL (0.0-0.2); %Monocytes 7.3 % (0.0-10.0); Hemoglobin 12.7 g/dL (14.0-18.0); Mean Platelet Volume 7.8 fL (7.4-10.4)
[2020-11-11 04:53] LABS: Anion Gap 14 mmol/L (10-20); BUN (Urea Nitrogen) 18 mg/dL (8.4-25.7); Calc. Creatinine Clearance 93 mL/min (70-130); Calcium 8.4 mg/dL (7.8-10.44); Carbon Dioxide 25 mmol/L (23-31); Cardiac Risk 3.4 (Less than 4.5); Chloride 108 mmol/L (98-107); Cholesterol 156 mg/dl (< 200 Desired); Glucose 163 mg/dL (83-110); HDL Cholesterol 46 mg/dL (>60 Neg Risk); LDL Cholesterol, Calculated 79 mg/dL; Potassium 4.6 mmol/L (3.5-5.1); Sodium 142 mmol/L (136-145); Triglycerides 153 mg/dL (Less than 150)
[2020-11-11 05:02] LABS: #Eosinphils 0.4 thou/uL (0.0-0.7); #Lymphocytes 3.8 thou/uL (1.20-3.40); #Monocytes 0.7 thou/uL (0.11-0.59); #Neutrophils 4.1 thou/uL (1.40-6.50); %Basophils 0.6 % (0.0-1.0); %Eosinophils 4.4 % (0.0-10.0); %Lymphocytes 42.2 % (21.0-51.0); %Neutrophils 45.5 % (42.0-75.0); Mean Corpuscular HGB CONC 31.1 g/dL (32.0-36.0); Mean Corpuscular Hemoglobin 28.2 pg (27.0-31.0); Mean Corpuscular Volume 90.6 fL (78.0-98.0); Platelet Count 208 thou/uL (130-400); RBC Distribution Width 13.3 % (11.5-14.5); Red Blood Cell (RBC) Count 4.51 mill/uL (4.70-6.10)
[2020-11-11] MEDS ORDERED: Famotidine 20 MG TAB PO SCH (09:00)
[2020-11-11] MEDS ORDERED: Enoxaparin Sodium 40 MG/0.4 ML SYRINGE SC SCH (09:00)
[2020-11-11] MEDS: HumaLOG 300 UNITS/3 ML VIAL SC PRN ×2 (11:47→17:16)
--- NOTE | 2020-11-11 13:02 | NM ---
CARDIAC SPECT: CLINICAL HISTORY: 75-year-old male with chest pain, hypertension, diabetes, and syncope. TECHNIQUE: A myocardial perfusion scan was performed using the single isotope one day protocol with technetium-9 9m sestamibi. 10 mCi were injected intravenously for the rest exam followed by 32 mCi for the stress exam. Pharmacologic stress with Adenosine was monitored and interpreted by Sergo Orantes. FINDINGS: The stress images demonstrate a small focal area of mildly decreased tracer localization in the dista l anteroseptal wall/apex. These demonstrate near complete reversibility at rest. GATED SPECT LVEF: 72%. WALL MOTION EXAM: Normal. IMPRESSION: Findings are suggestive of small area of mild ischemia in the distal anteroseptal/apical region. POS: AH
--- NOTE | 2020-11-11 13:48 | PDOC.HOSPP ---
- Subjective Encounter Date: 11/11/20 Encounter Time: 10:30 Subjective: pt up in bed no complains - Objective Vital Signs & Weight: Vital Signs (12 hours) Temp Pulse Resp BP Pulse Ox 11/11/20 11:50 98.4 F 75 16 174/76 H 97 11/11/20 07:45 98.2 F 82 16 129/60 98 Weight Weight 247 lb 5 oz Result Diagrams: 11/11/20 04:19 11/11/20 04:19 Additional Labs: Accuchecks 11/11/20 11/11/20 11:42 06:12 POC Glucose 217 H 160 H Hospitalist ROS - Review of Systems Cardiovascular: denies: chest pain, palpitations, orthopnea, paroxysmal noc. dy spnea, edema, light headedness, other Gastrointestinal: denies: nausea, vomiting, abdominal pain, diarrhea, constipation, melena, hematochezia, other Genitourinary: denies: dysuria, frequency, incontinence, hematuria, retention, other - Medication Medications: Active Medications Generic Name Dose Route Start Last Admin Trade Name Freq PRN Reason Stop Dose Admin Enoxaparin Sodium 40 mg 11/11/20 09:00 11/11/20 11:07 Enoxaparin Sodium 40 Mg/0.4 Ml Syringe SC 40 mg 0900 CHUY Administration Famotidine 20 mg 11/11/20 09:00 11/11/20 11:07 Famotidine 20 Mg Tab PO 20 mg BID CHUY Administration Insulin Human Lispro 0 units 11/10/20 22:38 11/11/20 11:47 Humalog 300 Units/3 Ml Vial SC 4 unit .MODERATE SLIDING SC PRN Administration Moderate Correctional Scale - Exam Neck: negative: supple, symmetric, no JVD, no thyromegaly, no lymphadenopathy, no carotid bruit, JVD Heart: negative: RRR, no murmur, no gallops, no rubs, normal peripheral pulses, irregular, diminshed peripheral pulses, murmur present, II/IV, III/IV Respiratory: negative: CTAB, no wheezes, no rales, no ronchi, normal chest expansion, no tachypnea, normal percussion, rales, rhonchi, tachypneic, wheezes Gastrointestinal: negative: soft, non-tender, non-distended, normal bowel sounds, no palpable masses, no hepatomegaly, no splenomegaly, no bruit, no guarding, no rigidity, tender to palpation, distended, diminished bowl sounds, voluntary guarding Hosp A/P (1) Syncope Code(s): R55 - SYNCOPE AND COLLAPSE Status: Acute (2) Chronic kidney disease, stage 3 Code(s): N18.30 - CHRONIC KIDNEY DISEASE, STAGE 3 UNSPECIFIED Status: Chronic (3) Diabetes mellitus Code(s): E11.9 - TYPE 2 DIABETES MELLITUS WITHOUT COMPLICATIONS Status: Chronic (4) Hypertension Code(s): I10 - ESSENTIAL (PRIMARY) HYPERTENSION Status: Chronic - Plan Patient's was at the bedside stated that patient was at the restaurant eating ate a nice meal and then all of a sudden slumped over. She states that he was not talking and did not open his when talked to. She states that when EMS got there he started talking. Patient's states that this is never happened to him before. Patient had a stress test which did indicate some arrhythmia however this was expected. However his stress test now is abnormal. I will consult cardiology. I also spoke with cardiology's office to set up a loop monitor. We will also get an MRI brain since patient states that his gait has been a little off. CTA was negative. Echo is pending. Patient had Covid in the past. His current Covid test is negative
[2020-11-11 15:31] VITALS: BP 150/74; TEMP 98
--- NOTE | 2020-11-11 16:07 | MRI ---
MRI brain noncontrast HISTORY: CVA. FINDINGS: There is no evidence of acute intracranial hemorrhage or infarct. Chronic ischemic small ve ssel disease evident throughout the periventricular white matter. Old lacunar infarct at the right periventricular white matter. There is no mass effect or shift of midline structures. Motion artifact obscures detail on the T2-weighted images. IMPRESSION : No acute abnormalities are demonstrated.
--- NOTE | 2020-11-11 16:25 | PDOC.DS.DS ---
Provider - Provider Date of Admission: 11/10/20 16:11 Date of Discharge: 11/11/20 Admitting Provider: Phoenix Kamara MD Consultations: Cardiology Primary Care Physician: Henry Forde MD Course - Hospital Course Hospital Course: Patient is a very pleasant 75-year-old male who presents to the hospital with a syncopal episode. Patient's is at the bedside states that patient took insulin prior to going to [employer] she went to [employer] then went for breakfast ate breakfast was having a conversation and then closed his eyes and was not re sponding. This time EMS was called. Patient underwent a stroke work-up including MRI brain which was negative. He had a stress test which was abnormal therefore cardiology was consulted recommended no work-up. I did call the [facility]bx mechanic office to set up a loop monitor which cardiology has agreed with. He did have second-degree type II during his stress test. Echo indicated 55 to 60%. CTA negative. He was discharged home follow-up with primary he was educated to take an aspirin. Resuscitation Status: 11/10/20 17:03 Resuscitation Status Routine Resuscitation Status: FULL: Full Resuscitation - Labs Lab Results: 11/11/20 04:19 11/11/20 04:19 Abnormal Lab Results - Last 48 hrs 11/10/20 13:18: Lipase 6 L 11/10/20 13:18: RBC 4.27 L, Hgb 12.7 L, Hct 38.6 L, Monocytes # 0.7 H 11/10/20 14:06: Urine Glucose (UA) 70 A 11/11/20 04:19: Chloride 108 H, Triglycerides 153 H 11/11/20 04:19: RBC 4.51 L, Hgb 12.7 L, Hct 40.9 L, MCHC 31.1 L, Lymphocytes # 3.8 H, Monocytes # 0.7 H - Physical Exam Vitals: Vital Signs (12 hours) Temp Pulse Resp BP Pulse Ox 11/11/20 15:30 98.0 F 71 16 150/74 H 97 11/11/20 11:50 98.4 F 75 16 174/76 H 97 11/11/20 07:45 98.2 F 82 16 129/60 98 Weight Weight 247 lb 5 oz Physical Exam: The patient was seen and examined on the day of discharge. Problem - Problem (1) Syncope Code(s): R55 - SYNCOPE AND COLLAPSE Status: Acute (2) Chronic kidney disease, stage 3 Code(s): N18.30 - CHRONIC KIDNEY DISEASE, STAGE 3 UNSPECIFIED Status: Chronic (3) Diabetes mellitus Code(s): E11.9 - TYPE 2 DIABETES MELLITUS WITHOUT COMPLICATIONS Status: Chronic (4) Hypertension Code(s): I10 - ESSENTIAL (PRIMARY) HYPERTENSION Status: Chronic Plan - Discharge Medications Home Medications: Medication Instructions Recorded Confirmed Type Atorvastatin Calcium [Lipitor] 20 mg PO HS 05/25/17 04/22/20 History Donepezil HCl [Aricept] 10 mg PO HS 05/25/17 04/22/20 History Insulin Lispro Protamin/Lispro 60 unit SC BID-AC 05/25/17 04/22/20 History [HumaLOG Mix 75/25 KwikPen] Lisinopril 2.5 mg PO DAILY 05/25/17 04/22/20 History Albuterol Sulfate [Albuterol 2 puff IH Q4H PRN 04/22/20 04/22/20 History Sulfate Hfa] Ondansetron [Zofran ODT] 4 mg PO Q8HR PRN 04/22/20 04/22/20 History Aspirin [Ecotrin Low Strength] 81 mg PO DAILY tab 04/26/20 Rx Famotidine [Pepcid] 20 mg PO DAILY #8 tablet 04/26/20 Rx Allergies: No Known Allergies Allergy (Verified 01/27/20 09:52) - Discharge Instructions Activity:: Activity as Tolerated Nourishment:: Heart Healthy Diet - Follow up Plan Referrals: Hong Qiu MD [Active] - 7 Days (Call office to schedule an appointment and to follow up about your loop recorder.) Henry Forde MD [Primary Care Provider] - 3 Days (Please call the office to schedule a follow up appointment.) Disposition: HOME Quality - Care Measures CORE MEASURES:: N/A
[2020-11-11] MEDS ORDERED: HumuLIN 70/30 (300 UNITS/3 ML VIAL) SC SCH (16:30)
--- NOTE | 2020-11-11 17:32 | CON ---
DATE OF CONSULTATION: REASON FOR CONSULTATION: Syncope. HISTORY OF PRESENT ILLNESS: Mr. Grayson is a 75-year-old gentleman, who I saw and evaluated back in 2011. He recently presented with syncopal episode. This occurred while having lunch. No chest pain or pressure noted. The family is concerned that his glucose may have dropped to low, although when EMS was summoned, his glucose appeared within normal limits. Mr. Grayson denies chest pain, pressure, or associated symptoms. He recently with a noninvasive stress study with a small apical area of ischemia with a normal LVEF. PAST MEDICAL HISTORY: Hypertension, diabetes, , ankle surgery. FAMILY HISTORY: Positive for diabetes. HOME MEDICATIONS: 1. Zofran. 2. Lisinopril. 3. Insulin. 4. Pepcid. 5. Aricept. 6. Lipitor. 7. Aspirin. 8. Albuterol. PHYSICAL EXAMINATION: VITAL SIGNS: Blood pressure 150/74, pulse 71, temperature 98. General: The patient is a pleasant gentleman, in no acute distress, appears stated age. Head, Eyes, Ears, Nose and Throat: Sclerae without icterus. Mouth: Moist mucous membranes, normal palate. Neck: No jugular venous distention. Carotid upstroke is brisk. No bruits bilaterally. Lungs: Clear to auscultation. Heart: Regular rate and rhythm, normal S1 and S2. Abdomen: Soft, nontender, nondistended. Extremities: No edema. PERTINENT LABORATORY DATA: Hemoglobin 12.7, hematocrit 40.9, white blood cell count 9.0, platelet count 208. IMAGING STUDIES: EKG, normal sinus rhythm, nonspecific ST-T wave changes. IMPRESSION: Syncope. RECOMMENDATIONS: Mr. Grayson did have a small area of ischemia on recent stress study, which was the concern of the hospitalist. This is felt to be a low risk scan with ischemia in the distal anteroseptal and apical region with LVEF 72%. I discussed medical therapy versus angiography. I would agree with proceeding with a more conservative approach etiology to his syncopal episode and recommend a 3-week event recorder. This will be arranged as an outpatient. The patient is to follow up with us in the next 1 to 2 weeks. Job ID: [id number]
[2020-11-11] MEDS ORDERED: Atorvastatin Calcium 20 MG TAB PO SCH (21:00)
[2020-11-11] MEDS ORDERED: Donepezil HCl 10 MG TAB PO SCH (21:00)
[2020-11-12] MEDS ORDERED: Lisinopril 2.5 MG TAB PO SCH (09:00)
[2020-11-12] MEDS ORDERED: Aspirin 81 mg Enteric Coated Tablet PO SCH (09:00)
== END 2020-11-11 19:05 | disposition home or self-care (01) ==
LOC: ERS 12:54 → ERHOLD 16:11 → 2NO 22:34
PROVIDERS: ADMIT Internal Medicine; ATTEND Internal Medicine
DX: R55 Syncope and collapse (principal); I12.9 Hypertensive chronic kidney disease with stage 1 through stage 4 chronic kidney disease, or unspecified chronic kidney disease; E11.22 Type 2 diabetes mellitus with diabetic chronic kidney disease; N18.30 Chronic kidney disease, stage 3 unspecified; Z79.4 Long term (current) use of insulin; Z79.82 Long term (current) use of aspirin; Z79.899 Other long term (current) drug therapy; Z20.822 Contact with and (suspected) exposure to COVID-19; Z86.16 Personal history of COVID-19
CPT/HCPCS: 36415; 36416; 70450; 70498; 70551; 71045; 78452; 80048; 80053; 80061; 81003; 83690; 83735; 83880; 84484; 85025; 87635; 93005; 93017; 93306; 94760; 96372; A9500; G0378; J0153; J1650; Q9967; U0003

== ENCOUNTER 2021-03-08 19:24 | Emergency (ER) | payer OTHER, MEDICARE, BC ==
[2021-03-08] MEDS ORDERED: HYDROcodone/Acetaminophen 10/325 mg Tablet ONE (19:58)
== END 2021-03-08 21:19 | disposition home or self-care (01) ==
LOC: ERS 19:24
DX: S39.012A Strain of muscle, fascia and tendon of lower back, initial encounter (principal); E11.9 Type 2 diabetes mellitus without complications; Z79.4 Long term (current) use of insulin; W01.0XXA Fall on same level from slipping, tripping and stumbling without subsequent striking against object, initial encounter
CPT/HCPCS: 70450; 72125; 72131

== ENCOUNTER 2022-02-11 11:47 | Outpatient (CLI) | payer MEDICARE, BC | END 2022-02-11 11:48 | disposition home or self-care (01) | LOC: MRI 11:47 | PROVIDERS: ATTEND Neurological Surgery | DX: M48.062 Spinal stenosis, lumbar region with neurogenic claudication (principal); M47.22 Other spondylosis with radiculopathy, cervical region; M47.815 Spondylosis without myelopathy or radiculopathy, thoracolumbar region; M47.816 Spondylosis without myelopathy or radiculopathy, lumbar region; I70.0 Atherosclerosis of aorta | CPT/HCPCS: 72050; 72120; 72141; 72148 ==

== ENCOUNTER 2022-04-27 09:00 | Outpatient (CLI) | payer MEDICARE ==
[2022-04-27 10:25] LABS: Hemoglobin 14.4 g/dL (13.5-17.5); Mean Corpuscular Volume 88.1 fl (81.2-95.1); Mean Platelet Volume 10.3 fl (7.4-10.4); Platelet Count 221 10x3/uL (150-450); RBC Distribution Width 14.5 % (11.5-14.5); Red Blood Cell (RBC) Count 4.96 10x6/uL (4.32-5.72)
[2022-04-27 10:27] LABS: Anion Gap 16 mmol/L (10-20); BUN (Urea Nitrogen) 23 mg/dL (8.4-25.7); Calc. Creatinine Clearance 0 mL/min (70-130); Carbon Dioxide 24 mmol/L (23-31); Chloride 106 mmol/L (98-107); Glucose 144 mg/dL (83-110); Potassium 4.5 mmol/L (3.5-5.1); Sodium 141 mmol/L (136-145)
[2022-04-27 10:35] LABS: PTT 24.8 sec (22.0-33.0); Prothrombin Time 10.4 sec (9.5-12.1)
== END 2022-04-27 09:01 | disposition home or self-care (01) ==
LOC: LABBT 09:00
PROVIDERS: ATTEND Neurological Surgery
DX: U07.1 COVID-19 (principal); Z01.818 Encounter for other preprocedural examination; M50.00 Cervical disc disorder with myelopathy, unspecified cervical region
CPT/HCPCS: 80048; 85027; 85610; 85730; 93005; 93010; U0003; U0005

== ENCOUNTER 2022-05-28 10:37 | Inpatient (IN) | payer MEDICARE ==
[2022-05-26 11:42] VITALS: BMI 40.3
[2022-05-28] MEDS ORDERED: Thrombin 5000 UNITS/5 ML VIAL ONE (11:22)
[2022-05-28] MEDS ORDERED: Neomycin-Polymyxin 1 ML AMP ONE (11:22)
[2022-05-28] MEDS ORDERED: CEFAZOLIN 2 GM VIAL ONE (11:30)
[2022-05-28] MEDS ORDERED: Sodium Chloride 0.9% 100 ML ONE (11:30)
[2022-05-28 11:37] LABS: #Eosinphils 0.1 thou/uL (0.0-0.7); #Lymphocytes 3.5 thou/uL (1.20-3.40); #Monocytes 0.5 thou/uL (0.11-0.59); %Basophils 0.1 % (0.0-1.0); %Eosinophils 1.7 % (0.0-10.0); %Lymphocytes 42.5 % (21.0-51.0); %Monocytes 6.6 % (0.0-10.0); Mean Corpuscular HGB CONC 31.6 g/dL (32.0-36.0); Mean Corpuscular Hemoglobin 29.5 pg (27.0-31.0); Mean Corpuscular Volume 93.5 fL (78.0-98.0); Mean Platelet Volume 7.6 fL (7.4-10.4); Platelet Count 212 thou/uL (130-400); RBC Distribution Width 13.4 % (11.5-14.5); Red Blood Cell (RBC) Count 4.75 mill/uL (4.70-6.10); White Blood Cell (WBC) Count 8.2 thou/uL (4.8-10.8)
[2022-05-28 11:50] LABS: Prothrombin Time 13.2 sec (12.0-14.7)
[2022-05-28 11:51] LABS: PTT 26.4 sec (22.9-36.1)
[2022-05-28] MEDS ORDERED: Propofol 500 MG/50 ML VIAL ONE (11:51)
[2022-05-28] MEDS ORDERED: HYDROmorphone 2 MG/ML VIAL ONE (11:51)
[2022-05-28] MEDS ORDERED: ePHEDrine Sulfate 50 MG/10 ML VIAL ONE (12:00)
[2022-05-28] MEDS ORDERED: Rocuronium Bromide 10 MG/ML (10ML VIAL) ONE (12:00)
[2022-05-28] MEDS ORDERED: Dexamethasone 20 MG/5 ML VIAL ONE (12:00)
[2022-05-28] MEDS ORDERED: PROPOFOL 200 MG/20 ML VIAL ONE (12:00)
[2022-05-28] MEDS ORDERED: Lidocaine 1% PF 5 ML VIAL ONE (12:00)
[2022-05-28] MEDS ORDERED: Ondansetron PF 4 MG/2 ML Vial ONE (12:00)
[2022-05-28] MEDS ORDERED: Glycopyrrolate 0.2 MG/ML 5 ML SYRINGE ONE (12:00)
[2022-05-28] MEDS ORDERED: Labetalol HCl 100 MG/20 ML VIAL ONE (12:00)
[2022-05-28] MEDS ORDERED: Esmolol 100 MG/10 ML VIAL ONE (12:00)
[2022-05-28] MEDS ORDERED: PROPOFOL 20 ML ONE (14:09)
[2022-05-28] MEDS ORDERED: Promethazine HCl 25 MG/ML VIAL IVPB PRN (14:43)
[2022-05-28] MEDS ORDERED: Ondansetron HCl/PF 4 MG/2 ML Vial IVP PRN (14:43)
[2022-05-28] MEDS ORDERED: HYDROmorphone 2 MG/ML VIAL SLOW IVP PRN (14:43)
[2022-05-28] MEDS ORDERED: Meperidine HCl/PF 25 MG/ML VIAL SLOW IVP PRN (14:43)
[2022-05-28] MEDS ORDERED: Fentanyl 100 MCG/2 ML VIAL ONE (15:32)
[2022-05-28] MEDS ORDERED: Ondansetron PF 4 MG/2 ML Vial IVP PRN (17:54)
[2022-05-28] MEDS ORDERED: Mag-Al 1200 mg/1200 mg/30 ML UDCUP PO PRN (17:54)
[2022-05-28] MEDS ORDERED: diphenhydrAMINE 50 MG/ML VIAL IVP PRN (17:54)
[2022-05-28] MEDS ORDERED: Morphine 2 MG/ML VIAL SLOW IVP PRN (17:54)
[2022-05-28] MEDS ORDERED: Milk Of Magnesia 30 ML UDCUP PO PRN (17:54)
[2022-05-28] MEDS ORDERED: Acetaminophen 325 MG TAB PO PRN (17:54)
[2022-05-28] MEDS ORDERED: HYDROcodone/Acetaminophen 10/325 mg Tablet PO PRN (17:54)
[2022-05-28] MEDS ORDERED: Cyclobenzaprine 10 MG TAB PO PRN (17:54)
[2022-05-28] MEDS ORDERED: Prochlorperazine 10 MG/2 ML VIAL IM PRN (17:54)
[2022-05-28] MEDS ORDERED: Dextrose 5% in Water 1,000 ML IV PRN (17:57)
[2022-05-28] MEDS ORDERED: Dextrose 50% Abboject 50 ML SYRINGE SLOW IVP PRN (17:57)
[2022-05-28] MEDS ORDERED: Gabapentin 300 MG CAP PO PRN (18:06)
[2022-05-28] MEDS ORDERED: diphenhydrAMINE 25 MG CAP PO PRN (18:11)
[2022-05-28] MEDS ORDERED: Albuterol Sulfate 2.5 mg/3 ml Neb NEB PRN (18:12)
[2022-05-28] MEDS ORDERED: Promethazine HCl 25 MG/ML VIAL IM PRN (18:15)
[2022-05-28] MEDS ORDERED: Promethazine 25 MG TAB PO PRN (18:15)
[2022-05-28] MEDS ORDERED: Promethazine HCl 25 MG SUPP PR PRN (18:15)
[2022-05-28] MEDS: Sodium Chloride 0.9% 1,000 ML IV SCH (18:52)
[2022-05-28] MEDS: CEFAZOLIN 2 GM in Sodium Chloride 0.9% 100 ML IVPB SCH (20:24)
[2022-05-28] MEDS: Donepezil HCl 10 MG TAB PO SCH (20:24)
[2022-05-28] MEDS: Atorvastatin Calcium 20 MG TAB PO SCH (20:24)
[2022-05-28] MEDS: Insulin Regular 300 UNITS/3 ML VIAL SC PRN (21:34)
[2022-05-28] MEDS: HYDROcodone/Acetaminophen 7.5/325 mg Tablet PO PRN (22:27)
[2022-05-29] MEDS: CEFAZOLIN 2 GM in Sodium Chloride 0.9% 100 ML IVPB SCH (03:11)
[2022-05-29] MEDS: Tamsulosin HCl 0.4 MG CAP PO SCH (05:40)
[2022-05-29] MEDS: Sodium Chloride 0.9% 1,000 ML IV SCH ×2 (05:47→22:31)
[2022-05-29] MEDS: HYDROcodone/Acetaminophen 7.5/325 mg Tablet PO PRN ×2 (07:57→16:39)
[2022-05-29] MEDS: Lisinopril 2.5 MG TAB PO SCH (07:57)
[2022-05-29] MEDS: Insulin Regular 300 UNITS/3 ML VIAL SC PRN ×3 (11:57→22:20)
[2022-05-29] MEDS ORDERED: Cepastat Lozenges 1 LOZ PO PRN (16:53)
[2022-05-29] MEDS: Donepezil HCl 10 MG TAB PO SCH (21:01)
[2022-05-29] MEDS: Atorvastatin Calcium 20 MG TAB PO SCH (21:01)
[2022-05-29] MEDS ORDERED: hydrALAZINE 20 MG/ML VIAL SLOW IVP PRN (23:55)
[2022-05-30] MEDS ORDERED: guaiFENesin ER 600 MG TAB PO SCH (04:30)
[2022-05-30] MEDS: Insulin Regular 300 UNITS/3 ML VIAL SC PRN ×3 (04:34→22:02)
[2022-05-30] MEDS: Tamsulosin HCl 0.4 MG CAP PO SCH (04:34)
[2022-05-30 06:34] LABS: Cardiac Risk 3.5 (Less than 4.5)
[2022-05-30 06:42] LABS: Hemoglobin A1c 8.1 % (4.0-6.0)
[2022-05-30] MEDS: Lisinopril 2.5 MG TAB PO SCH (15:36)
[2022-05-30] MEDS: Sodium Chloride 0.9% 1,000 ML IV SCH (15:37)
[2022-05-30] MEDS: Donepezil HCl 10 MG TAB PO SCH (20:45)
[2022-05-30] MEDS: guaiFENesin ER 600 MG TAB PO SCH (20:45)
[2022-05-30] MEDS: Atorvastatin Calcium 20 MG TAB PO SCH (20:45)
[2022-05-31] MEDS: Sodium Chloride 0.9% 1,000 ML IV SCH (01:00)
[2022-05-31] MEDS: Tamsulosin HCl 0.4 MG CAP PO SCH (05:35)
[2022-05-31] MEDS: Insulin Regular 300 UNITS/3 ML VIAL SC PRN ×3 (06:34→20:47)
[2022-05-31] MEDS: Lisinopril 2.5 MG TAB PO SCH (07:44)
[2022-05-31] MEDS: guaiFENesin ER 600 MG TAB PO SCH ×2 (07:44→20:46)
[2022-05-31] MEDS ORDERED: Polyethylene Glycol 3350 17 GM Packet PO SCH (09:15)
[2022-05-31] MEDS: HumaLOG 300 UNITS/3 ML VIAL SC SCH (17:08)
[2022-05-31] MEDS: Atorvastatin Calcium 20 MG TAB PO SCH (20:46)
[2022-05-31] MEDS: Donepezil HCl 10 MG TAB PO SCH (20:46)
[2022-05-31] MEDS: Senokot S 8.6-50 MG TAB PO SCH (20:46)
[2022-05-31] MEDS: Insulin Glargine 30 UNITS/0.3 ML VIAL SC SCH (20:46)
[2022-06-01] MEDS: Tamsulosin HCl 0.4 MG CAP PO SCH (05:29)
[2022-06-01 05:50] LABS: Hemoglobin 12.8 g/dL (14.0-18.0); Platelet Count 186 thou/uL (130-400)
[2022-06-01 06:10] LABS: Anion Gap 14 mmol/L (10-20); BUN (Urea Nitrogen) 20 mg/dL (8.4-25.7); Calc. Creatinine Clearance 83 mL/min (70-130); Calcium 8.5 mg/dL (7.8-10.44); Carbon Dioxide 26 mmol/L (23-31); Chloride 103 mmol/L (98-107); Estimated GFR 63; Glucose 178 mg/dL (83-110); Sodium 139 mmol/L (136-145)
[2022-06-01] MEDS: Polyethylene Glycol 3350 17 GM Packet PO SCH (08:14)
[2022-06-01] MEDS: guaiFENesin ER 600 MG TAB PO SCH ×2 (08:14→21:07)
[2022-06-01] MEDS: Senokot S 8.6-50 MG TAB PO SCH ×2 (08:14→21:07)
[2022-06-01] MEDS: Lisinopril 2.5 MG TAB PO SCH (08:15)
[2022-06-01] MEDS: HumaLOG 300 UNITS/3 ML VIAL SC SCH ×3 (08:17→17:29)
[2022-06-01] MEDS: Insulin Glargine 30 UNITS/0.3 ML VIAL SC SCH (21:07)
[2022-06-01] MEDS: Atorvastatin Calcium 20 MG TAB PO SCH (21:07)
[2022-06-01] MEDS: Donepezil HCl 10 MG TAB PO SCH (21:07)
[2022-06-02] MEDS: Tamsulosin HCl 0.4 MG CAP PO SCH (05:51)
[2022-06-02] MEDS: Polyethylene Glycol 3350 17 GM Packet PO SCH (08:41)
[2022-06-02] MEDS: guaiFENesin ER 600 MG TAB PO SCH ×2 (08:41→21:14)
[2022-06-02] MEDS: HumaLOG 300 UNITS/3 ML VIAL SC SCH ×3 (08:41→16:51)
[2022-06-02] MEDS: Lisinopril 2.5 MG TAB PO SCH (08:41)
[2022-06-02] MEDS: Senokot S 8.6-50 MG TAB PO SCH ×2 (08:44→21:15)
[2022-06-02] MEDS: Donepezil HCl 10 MG TAB PO SCH (21:14)
[2022-06-02] MEDS: Atorvastatin Calcium 20 MG TAB PO SCH (21:14)
[2022-06-02] MEDS: Insulin Glargine 30 UNITS/0.3 ML VIAL SC SCH (21:59)
[2022-06-02] MEDS: Insulin Regular 300 UNITS/3 ML VIAL SC PRN (21:59)
[2022-06-03] MEDS: Tamsulosin HCl 0.4 MG CAP PO SCH (06:37)
[2022-06-03] MEDS: HumaLOG 300 UNITS/3 ML VIAL SC SCH ×3 (09:16→18:28)
[2022-06-03] MEDS: Lisinopril 2.5 MG TAB PO SCH (09:17)
[2022-06-03] MEDS: Senokot S 8.6-50 MG TAB PO SCH ×2 (09:17→20:52)
[2022-06-03] MEDS: guaiFENesin ER 600 MG TAB PO SCH ×2 (09:17→20:52)
[2022-06-03] MEDS: Polyethylene Glycol 3350 17 GM Packet PO SCH (09:17)
[2022-06-03] MEDS ORDERED: Bisacodyl 10 MG SUPP PR PRN (11:44)
[2022-06-03] MEDS: Insulin Regular 300 UNITS/3 ML VIAL SC PRN ×2 (12:19→21:58)
[2022-06-03] MEDS: Acetaminophen/Codeine 30-300mg Tablet PO PRN (18:34)
[2022-06-03] MEDS: Atorvastatin Calcium 20 MG TAB PO SCH (20:52)
[2022-06-03] MEDS: Donepezil HCl 10 MG TAB PO SCH (20:52)
[2022-06-03] MEDS: Insulin Glargine 30 UNITS/0.3 ML VIAL SC SCH (20:52)
[2022-06-04] MEDS: Tamsulosin HCl 0.4 MG CAP PO SCH (05:25)
[2022-06-04] MEDS: Insulin Regular 300 UNITS/3 ML VIAL SC PRN ×2 (05:27→13:03)
[2022-06-04] MEDS ORDERED: HumuLIN 70/30 (300 UNITS/3 ML VIAL) SC SCH (07:30)
[2022-06-04] MEDS ORDERED: Non-Formulary Item 1 EACH (Insulin Lispro Protamin/Lispro [Humalog Mix 75/25 Kwikpen] 300 SC SCH (07:30)
[2022-06-04] MEDS: guaiFENesin ER 600 MG TAB PO SCH (08:43)
[2022-06-04] MEDS: Lisinopril 2.5 MG TAB PO SCH (08:43)
[2022-06-04] MEDS: Senokot S 8.6-50 MG TAB PO SCH (08:43)
[2022-06-04] MEDS: Polyethylene Glycol 3350 17 GM Packet PO SCH (08:45)
[2022-06-04] MEDS ORDERED: Insulin Glargine 30 UNITS/0.3 ML VIAL SC SCH (09:00)
[2022-06-04 15:16] VITALS: BP 147/76; TEMP 97.9
[2022-06-04] MEDS: Acetaminophen/Codeine 30-300mg Tablet PO PRN (15:20)
== END 2022-06-04 16:15 | DRG 472 ==
LOC: SDC 10:37 → SURG B 16:24 → OBSVTOIN 05-30 17:38
PROVIDERS: ADMIT Neurological Surgery; ATTEND Neurological Surgery
PROC: 0RG20A0 Fusion of 2 or more Cervical Vertebral Joints with Interbody Fusion Device, Anterior Approach, Anterior Column, Open Approach (ICD-10-PCS; principal; 2022-05-28)
PROC: 01N10ZZ Release Cervical Nerve, Open Approach (ICD-10-PCS; 2022-05-28)
PROC: 00NW0ZZ Release Cervical Spinal Cord, Open Approach (ICD-10-PCS; 2022-05-28)
PROC: 0RT30ZZ Resection of Cervical Vertebral Disc, Open Approach (ICD-10-PCS; 2022-05-28)
DX: M50.021 Cervical disc disorder at C4-C5 level with myelopathy (principal); Z68.41 Body mass index [BMI] 40.0-44.9, adult; M50.022 Cervical disc disorder at C5-C6 level with myelopathy; M48.02 Spinal stenosis, cervical region; E78.00 Pure hypercholesterolemia, unspecified; G89.29 Other chronic pain; M48.062 Spinal stenosis, lumbar region with neurogenic claudication; E66.01 Morbid (severe) obesity due to excess calories; I25.10 Atherosclerotic heart disease of native coronary artery without angina pectoris; E11.22 Type 2 diabetes mellitus with diabetic chronic kidney disease; I12.9 Hypertensive chronic kidney disease with stage 1 through stage 4 chronic kidney disease, or unspecified chronic kidney disease; N18.30 Chronic kidney disease, stage 3 unspecified; N52.9 Male erectile dysfunction, unspecified; M19.90 Unspecified osteoarthritis, unspecified site; K59.00 Constipation, unspecified; E11.42 Type 2 diabetes mellitus with diabetic polyneuropathy; N40.0 Benign prostatic hyperplasia without lower urinary tract symptoms; I49.5 Sick sinus syndrome; Z95.0 Presence of cardiac pacemaker; Z83.3 Family history of diabetes mellitus; Z87.891 Personal history of nicotine dependence; Z79.4 Long term (current) use of insulin; Z79.82 Long term (current) use of aspirin; Z79.899 Other long term (current) drug therapy; Z86.16 Personal history of COVID-19; Z87.442 Personal history of urinary calculi; Z80.0 Family history of malignant neoplasm of digestive organs; Z80.42 Family history of malignant neoplasm of prostate; Z82.49 Family history of ischemic heart disease and other diseases of the circulatory system
CPT/HCPCS: 36415; 36416; 71045; 76000; 80048; 80061; 83036; 85014; 85018; 85025; 85049; 85610; 85730; 93970; 96365; 97139; C1713; G0378; J0690; J1100; J1170; J1815; J2405; J2550; J2704; J2710; J3010; J3490; J7050

== ENCOUNTER 2022-06-27 11:09 | Observation (INO) | payer MEDICARE ==
[2022-06-27 12:12] LABS: #Basophils 0.1 thou/uL (0.0-0.2); #Eosinphils 0.1 thou/uL (0.0-0.7); #Lymphocytes 2.4 thou/uL (1.20-3.40); #Monocytes 0.6 thou/uL (0.11-0.59); #Neutrophils 4.7 thou/uL (1.40-6.50); %Basophils 1.5 % (0.0-1.0); %Eosinophils 1.9 % (0.0-10.0); %Monocytes 7.7 % (0.0-10.0); %Neutrophils 58.9 % (42.0-75.0); Mean Corpuscular HGB CONC 32.7 g/dL (32.0-36.0); Mean Corpuscular Hemoglobin 29.9 pg (27.0-31.0); Mean Corpuscular Volume 91.3 fL (78.0-98.0); Platelet Count 207 thou/uL (130-400); RBC Distribution Width 13.2 % (11.5-14.5)
[2022-06-27 12:33] LABS: ALT (SGPT) 10 U/L (8-55); AST (SGOT) 14 U/L (5-34); Albumin 3.7 g/dL (3.4-4.8); Alkaline Phosphatase 69 U/L (40-110); Anion Gap 15 mmol/L (10-20); BUN (Urea Nitrogen) 25 mg/dL (8.4-25.7); Bilirubin, Total 0.6 mg/dL (0.2-1.2); Calc. Creatinine Clearance 0 mL/min (70-130); Calcium 8.8 mg/dL (7.8-10.44); Carbon Dioxide 24 mmol/L (23-31); Chloride 105 mmol/L (98-107); Estimated GFR 51; Globulin 2.5 g/dL (2.4-3.5); Glucose 232 mg/dL (83-110); Potassium 5.3 mmol/L (3.5-5.1); Protein, Total 6.2 g/dL (5.8-8.1); Sodium 139 mmol/L (136-145)
[2022-06-27] MEDS ORDERED: Aspirin Chewable 81 MG TAB ONE (14:04)
[2022-06-27 14:21] LABS: Bilirubin Negative (Negative); Blood, Urine Negative (Negative); Clarity Clear (Clear); Glucose, Urine (Dipstick) 500 mg/dL (Negative); Ketone, Urine Negative (Negative); Leukocyte Negative Leu/uL (Negative); Nitrite Negative (Negative); Protein, Urine (Dipstick) Negative (Neg-Trace); Specific Gravity, Urine 1.016 (1.002-1.036); Urobilinogen 3 mg/dL (Less than 2)
[2022-06-27] MEDS ORDERED: Dextrose 50% Abboject 50 ML SYRINGE SLOW IVP PRN (15:14)
[2022-06-27] MEDS ORDERED: hydrALAZINE 20 MG/ML VIAL SLOW IVP PRN (15:14)
[2022-06-27] MEDS ORDERED: Dextrose 5% in Water 1,000 ML IV PRN (15:14)
[2022-06-27] MEDS ORDERED: Acetaminophen 325 MG TAB PO PRN (15:14)
[2022-06-27] MEDS ORDERED: Sodium Chloride 0.9% 1,000 ML IV SCH (15:45)
[2022-06-27 16:38] LABS: Anion Gap 16 mmol/L (10-20); BUN (Urea Nitrogen) 25 mg/dL (8.4-25.7); Calc. Creatinine Clearance 0 mL/min (70-130); Carbon Dioxide 23 mmol/L (23-31); Chloride 107 mmol/L (98-107); Estimated GFR 63; Glucose 170 mg/dL (83-110); Potassium 5.4 mmol/L (3.5-5.1); Sodium 141 mmol/L (136-145)
[2022-06-27] MEDS: HumuLIN 70/30 (300 UNITS/3 ML VIAL) SC SCH (21:16)
[2022-06-27] MEDS: Atorvastatin Calcium 40 MG TAB PO SCH (21:16)
[2022-06-27] MEDS: HumaLOG 300 UNITS/3 ML VIAL SC PRN (21:17)
[2022-06-28 05:16] LABS: #Eosinphils 0.3 thou/uL (0.0-0.7); #Lymphocytes 2.9 thou/uL (1.20-3.40); #Monocytes 0.7 thou/uL (0.11-0.59); #Neutrophils 3.8 thou/uL (1.40-6.50); %Basophils 0.4 % (0.0-1.0); %Eosinophils 3.6 % (0.0-10.0); %Monocytes 8.5 % (0.0-10.0); %Neutrophils 49.5 % (42.0-75.0); Hemoglobin 11.8 g/dL (14.0-18.0); Mean Corpuscular HGB CONC 32.7 g/dL (32.0-36.0); Mean Corpuscular Volume 91.7 fL (78.0-98.0); Platelet Count 195 thou/uL (130-400); RBC Distribution Width 13.3 % (11.5-14.5); Red Blood Cell (RBC) Count 3.94 mill/uL (4.70-6.10); White Blood Cell (WBC) Count 7.7 thou/uL (4.8-10.8)
[2022-06-28 05:53] LABS: Anion Gap 12 mmol/L (10-20); BUN (Urea Nitrogen) 18 mg/dL (8.4-25.7); Calc. Creatinine Clearance 93 mL/min (70-130); Calcium 8.5 mg/dL (7.8-10.44); Carbon Dioxide 26 mmol/L (23-31); Cardiac Risk 3.6 (Less than 4.5); Chloride 108 mmol/L (98-107); Cholesterol 135 mg/dl (< 200 Desired); Estimated GFR 77; Glucose 175 mg/dL (83-110); HDL Cholesterol 38 mg/dL (>60 Neg Risk); Potassium 4.7 mmol/L (3.5-5.1); Sodium 141 mmol/L (136-145)
[2022-06-28 06:30] LABS: Triglycerides 128 mg/dL (Less than 150)
[2022-06-28 06:35] LABS: LDL Cholesterol, Calculated 71 mg/dL
[2022-06-28] MEDS: Aspirin 81 mg Enteric Coated Tablet PO SCH (08:28)
[2022-06-28] MEDS: Clopidogrel Bisulfate 75 MG TAB PO SCH (08:29)
[2022-06-28] MEDS: HumuLIN 70/30 (300 UNITS/3 ML VIAL) SC SCH ×2 (08:29→20:14)
[2022-06-28] MEDS ORDERED: Tamsulosin HCl 0.4 MG CAP PO SCH ×2 (09:00→21:15)
[2022-06-28] MEDS: HumaLOG 300 UNITS/3 ML VIAL SC PRN ×3 (11:25→20:15)
[2022-06-28] MEDS: Atorvastatin Calcium 40 MG TAB PO SCH (20:14)
[2022-06-29 05:13] LABS: #Eosinphils 0.3 thou/uL (0.0-0.7); #Lymphocytes 3.2 thou/uL (1.20-3.40); #Monocytes 0.7 thou/uL (0.11-0.59); #Neutrophils 4.5 thou/uL (1.40-6.50); %Basophils 0.5 % (0.0-1.0); %Lymphocytes 36.7 % (21.0-51.0); %Monocytes 7.6 % (0.0-10.0); %Neutrophils 52.2 % (42.0-75.0); Hemoglobin 12.3 g/dL (14.0-18.0); Mean Corpuscular HGB CONC 32.2 g/dL (32.0-36.0); Mean Corpuscular Hemoglobin 29.4 pg (27.0-31.0); Mean Corpuscular Volume 91.5 fL (78.0-98.0); Mean Platelet Volume 7.7 fL (7.4-10.4); Platelet Count 205 thou/uL (130-400); RBC Distribution Width 12.9 % (11.5-14.5); Red Blood Cell (RBC) Count 4.18 mill/uL (4.70-6.10); White Blood Cell (WBC) Count 8.7 thou/uL (4.8-10.8)
[2022-06-29 05:29] LABS: Anion Gap 11 mmol/L (10-20); BUN (Urea Nitrogen) 15 mg/dL (8.4-25.7); Calc. Creatinine Clearance 101 mL/min (70-130); Calcium 8.7 mg/dL (7.8-10.44); Carbon Dioxide 27 mmol/L (23-31); Chloride 107 mmol/L (98-107); Estimated GFR 85; Glucose 152 mg/dL (83-110); Potassium 4.1 mmol/L (3.5-5.1); Sodium 141 mmol/L (136-145)
[2022-06-29] MEDS: HumuLIN 70/30 (300 UNITS/3 ML VIAL) SC SCH ×2 (08:51→20:56)
[2022-06-29] MEDS: Clopidogrel Bisulfate 75 MG TAB PO SCH (08:53)
[2022-06-29] MEDS: Aspirin 81 mg Enteric Coated Tablet PO SCH (08:53)
[2022-06-29] MEDS: HumaLOG 300 UNITS/3 ML VIAL SC PRN ×3 (11:01→20:55)
[2022-06-29] MEDS ORDERED: Iopamidol 370 76% 100 ML VIAL ONE (11:28)
[2022-06-29 16:48] VITALS: BMI 36.6
[2022-06-29] MEDS: Atorvastatin Calcium 40 MG TAB PO SCH (20:54)
[2022-06-29] MEDS ORDERED: Tamsulosin HCl 0.4 MG CAP PO SCH (21:00)
[2022-06-30 05:02] LABS: #Basophils 0.1 thou/uL (0.0-0.2); #Eosinphils 0.3 thou/uL (0.0-0.7); #Lymphocytes 3.1 thou/uL (1.20-3.40); #Monocytes 0.7 thou/uL (0.11-0.59); #Neutrophils 4.4 thou/uL (1.40-6.50); %Basophils 1.3 % (0.0-1.0); %Eosinophils 3.4 % (0.0-10.0); %Lymphocytes 36.3 % (21.0-51.0); Hemoglobin 12.3 g/dL (14.0-18.0); Mean Corpuscular HGB CONC 32.6 g/dL (32.0-36.0); Mean Corpuscular Hemoglobin 29.7 pg (27.0-31.0); Mean Corpuscular Volume 91.2 fL (78.0-98.0); Mean Platelet Volume 7.6 fL (7.4-10.4); Platelet Count 207 thou/uL (130-400); RBC Distribution Width 13.1 % (11.5-14.5); Red Blood Cell (RBC) Count 4.14 mill/uL (4.70-6.10); White Blood Cell (WBC) Count 8.6 thou/uL (4.8-10.8)
[2022-06-30] MEDS: HumaLOG 300 UNITS/3 ML VIAL SC PRN ×2 (06:14→11:17)
[2022-06-30 07:43] LABS: Anion Gap 14 mmol/L (10-20); BUN (Urea Nitrogen) 16 mg/dL (8.4-25.7); Calc. Creatinine Clearance 82 mL/min (70-130); Calcium 8.7 mg/dL (7.8-10.44); Carbon Dioxide 25 mmol/L (23-31); Chloride 106 mmol/L (98-107); Estimated GFR 67; Glucose 156 mg/dL (83-110); Potassium 4.8 mmol/L (3.5-5.1); Sodium 140 mmol/L (136-145)
[2022-06-30] MEDS: Aspirin 81 mg Enteric Coated Tablet PO SCH (09:13)
[2022-06-30] MEDS: Clopidogrel Bisulfate 75 MG TAB PO SCH (09:13)
[2022-06-30] MEDS: HumuLIN 70/30 (300 UNITS/3 ML VIAL) SC SCH (09:14)
[2022-06-30 12:33] VITALS: BP 117/68; TEMP 97.7
== END 2022-06-30 13:18 | disposition home or self-care (01) ==
LOC: ERS 11:09 → NEURO 14:13
PROVIDERS: ADMIT Student in an Organized Health Care Education/Training Program; ATTEND Student in an Organized Health Care Education/Training Program
DX: R53.1 Weakness (principal); R20.0 Anesthesia of skin; E11.9 Type 2 diabetes mellitus without complications; I10 Essential (primary) hypertension; E78.5 Hyperlipidemia, unspecified; E87.5 Hyperkalemia; N17.9 Acute kidney failure, unspecified; D64.9 Anemia, unspecified; I08.3 Combined rheumatic disorders of mitral, aortic and tricuspid valves; Z79.4 Long term (current) use of insulin; Z79.82 Long term (current) use of aspirin; Z79.899 Other long term (current) drug therapy; Z95.0 Presence of cardiac pacemaker; Z98.1 Arthrodesis status; Z20.822 Contact with and (suspected) exposure to COVID-19
CPT/HCPCS: 36415; 36416; 70450; 70496; 70498; 70551; 71045; 72040; 80048; 80053; 80061; 81003; 83036; 84443; 84484; 85025; 93005; 93306; 93880; G0378; J1815; J7050; Q9967; U0003; U0005

== ENCOUNTER 2022-07-24 13:51 | Outpatient (CLI) | payer MEDICARE | END 2022-07-24 13:52 | disposition home or self-care (01) | LOC: TBSIIMAG 13:51 | PROVIDERS: ATTEND Neurological Surgery | DX: M50.00 Cervical disc disorder with myelopathy, unspecified cervical region (principal); Z98.1 Arthrodesis status | CPT/HCPCS: 72040 ==

== ENCOUNTER 2022-08-31 12:08 | Outpatient (CLI) | payer MEDICARE | END 2022-08-31 12:09 | disposition home or self-care (01) | LOC: MRI 12:08 | PROVIDERS: ATTEND Neurological Surgery | DX: M48.062 Spinal stenosis, lumbar region with neurogenic claudication (principal); M47.816 Spondylosis without myelopathy or radiculopathy, lumbar region; M47.817 Spondylosis without myelopathy or radiculopathy, lumbosacral region; M47.815 Spondylosis without myelopathy or radiculopathy, thoracolumbar region | CPT/HCPCS: 72120; 72148 ==

== ENCOUNTER 2022-12-06 12:39 | Emergency (ER) | payer BC, MEDICARE ==
[2022-12-06 13:25] LABS: #Eosinphils 0.2 thou/uL (0.0-0.7); #Monocytes 0.6 thou/uL (0.11-0.59); %Basophils 0.1 % (0.0-1.0); %Eosinophils 2.6 % (0.0-10.0); %Lymphocytes 38.5 % (21.0-51.0); %Monocytes 7.9 % (0.0-10.0); %Neutrophils 50.9 % (42.0-75.0); Hemoglobin 12.4 g/dL (14.0-18.0); Mean Corpuscular HGB CONC 32.6 g/dL (32.0-36.0); Mean Corpuscular Hemoglobin 29.9 pg (27.0-31.0); Mean Corpuscular Volume 91.7 fl (78.0-98.0); Mean Platelet Volume 7.7 fL (7.4-10.4); Platelet Count 187 10x3/uL (130-400); RBC Distribution Width 13.2 % (11.5-14.5); Red Blood Cell (RBC) Count 4.15 mill/uL (4.70-6.10); White Blood Cell (WBC) Count 7.9 10x3/uL (4.8-10.8)
[2022-12-06 13:46] LABS: ALT (SGPT) 13 U/L (8-55); AST (SGOT) 14 U/L (5-34); Albumin 3.3 g/dL (3.4-4.8); Alkaline Phosphatase 55 U/L (40-110); Anion Gap 12 mmol/L (10-20); BUN (Urea Nitrogen) 26 mg/dL (8.4-25.7); Bilirubin, Total 0.6 mg/dL (0.2-1.2); Calc. Creatinine Clearance 0 mL/min (70-130); Calcium 8.5 mg/dL (7.8-10.44); Carbon Dioxide 24 mmol/L (23-31); Chloride 107 mmol/L (98-107); Estimated GFR 56; Globulin 2.8 g/dL (2.4-3.5); Glucose 202 mg/dL (83-110); Protein, Total 6.1 g/dL (5.8-8.1); Sodium 138 mmol/L (136-145)
== END 2022-12-06 18:18 | disposition home or self-care (01) ==
LOC: ERS 12:39
DX: R55 Syncope and collapse (principal); E78.00 Pure hypercholesterolemia, unspecified; I10 Essential (primary) hypertension; E11.9 Type 2 diabetes mellitus without complications; Z79.4 Long term (current) use of insulin; Z79.899 Other long term (current) drug therapy
CPT/HCPCS: 36415; 71045; 80053; 83880; 84443; 84484; 85025; 93005

== ENCOUNTER 2023-06-07 08:53 | Outpatient (CLI) | payer MEDICARE | END 2023-06-07 08:54 | disposition home or self-care (01) | LOC: RAD 08:53 | PROVIDERS: ATTEND Neurological Surgery | DX: M47.26 Other spondylosis with radiculopathy, lumbar region (principal) | CPT/HCPCS: 72120 ==

== ENCOUNTER 2024-04-20 08:42 | Outpatient (CLI) | payer MEDICARE | END 2024-04-20 08:43 | disposition home or self-care (01) | LOC: BICCT 08:42 | PROVIDERS: ATTEND Physician Assistant | DX: I77.9 Disorder of arteries and arterioles, unspecified (principal); I65.22 Occlusion and stenosis of left carotid artery; E04.2 Nontoxic multinodular goiter | CPT/HCPCS: 70498 ==

== ENCOUNTER 2024-05-12 08:36 | Outpatient (CLI) | payer MEDICARE | END 2024-05-12 08:37 | disposition home or self-care (01) | LOC: MRI 08:36 | PROVIDERS: ATTEND Family Medicine | DX: R42 Dizziness and giddiness (principal); R41.0 Disorientation, unspecified; R20.2 Paresthesia of skin; Z95.0 Presence of cardiac pacemaker | CPT/HCPCS: 70551; 71046 ==